=== PATIENT | female | born 1960 | race Caucasian/White ===

== ENCOUNTER 2016-09-24 23:26 | Emergency (ER) | payer OTHER ==
[~2016-09-24] VITALS: Ht 162.6 cm; Wt 122.5 kg
[~2016-09-24 23:26] MED LIST: ADVAIR 250-501 EACH INH; ADVAIR DISKU 11 UNIT PO; AUGMENTIN 875875 MG PO; AZITHROMYCIN250 MG PO; CLARITIN10 MG PO; FIORICET 50-301 EACH PO; GOOD SENSE IBU200 MG PO; GUAIFENESIN ER600 MG PO; LIVALO4 MG PO; MONTELUKAST SOD10 M1 PO; OMEPRAZOLE20 M2 PO; PREDNISONE 10MG10 MG PO; PREDNISONE 20MG20 MG PO; PREDNISONE10 M2 PO; PREDNISONE10 MG PO; PREDNISONE5 M1 PO; PROAIR HFA0.09 MG/Ac INH; Robitussin PO; SPIRIVA18 MCG INH; SUCRALFATE1 GM/10 M1 PO; SYMBICORT 80/4.1 PUF INH
[2016-09-24 23:40] VITALS: BP 162/86
--- NOTE | 2016-09-24 23:46 | ED DYSPNEA/ASTHMA COMPLAINT ---
History of Present Illness General Chief Complaint: Wheezing/Asthma Stated Complaint: ASTHMA ACTING UP PER PT Source: patient Exam Limitations: no limitations Vital Signs & Intake/Output Vital Signs & Intake/Output Vital Signs Date Time Temp Pulse Resp B/P Pulse O2 O2 Flow FiO2 Ox Delivery Rate 09/25 0024 20 100 Room Air 09/24 2355 95 09/24 2340 98.7 92 20 162/86 95 Room Air ED Intake and Output 09/25 0000 09/24 1200 Intake Total 0 Output Total Balance 0 Intake, Oral 0 Patient 270 lb Weight Allergies Coded Allergies: adhesive tape (Mild, HIVES 10/23/15) methyldopa (Mild, tongue swelling 10/23/15) amitriptyline (UNKNOWN 11/27/15) simvastatin (Mild, joint pain 11/27/15) escitalopram (From [employer]) ("Creepy crawlies inside me" 11/27/15) Reconcile Medications Albuterol Sulfate (Proair Hfa) 0.09 MG/Actuation ELIZABETH 2 PUFF INH Q4-PRN PRN ASTHMA (Reported) Butalb/Acetaminophen/Caffeine (Fioricet 50-300-40 MG Capsule) 1 EACH CAPSULE 1 -2 TAB PO Q6H PRN HEADACHE FLUTICASONE/SALMETEROL (Advair 250-50 Diskus) 250 MCG-50 MCG/DOSE BLST.W.DEV 1 PUFF INH BID ASTHMA (Reported) Guaifenesin (Guaifenesin ER) 600 MG TAB.ER.12H 600 MG PO Q12 chest congestion Loratadine (Claritin) 10 MG TAB 1 TAB PO DAILY ALLERGIES (Reported) Montelukast Sodium 10 MG TABLET 10 MG PO DAILY ASTHMA (Reported) Omeprazole 20 MG CAPSULE.DR 20 MG PO DAILY GERD (Reported) Pitavastatin Calcium (Livalo) 4 MG TABLET 1 TAB PO DAILY CHOLESTEROL ( Reported) Prednisone 50 MG TABLET 1 TAB PO DAILY asthma Prednisone 10 MG TABLET 1 TAB PO SI ASTHMA EXACERBATION START FROM TOMORROW 4 TABS DAILY X 2 DAYS 3 TABS DAILY X 3 DAYS 2 TABS DAILY X 3 DAYS 1 TAB DAILY X 3 DAYS UPTILL November Prednisone 5 MG TABLET 1 TAB PO SI ASTHMA EXACERBATION START TAKING ON November FOR 3 DAYS AND THEN STOP. [Robitussin] 10 ML PO Q4P PRN COUGH Tiotropium [place] (Spiriva) 18 MCG CAP.W.DEV 1 PUF INH DAILY LUNG HEALTH Triage Note: RECEIVED 56 YO FEMALE WITH HX OF ASTHMA, C/O WHEEZING, COUGHING AND SOB SINCE YESTERDAY, WORSE TODAY. PT'S PMD, DR MONTEMAYOR PUT HER ON ANTIBIOTICS AND MUCINEX. Triage Nurses Notes Reviewed? yes Onset: Gradual Duration: day(s): Timing: recent history Severity: mild, moderate Activities at Onset: none Prior Episodes/Possible Cause: occasional episodes Modifying Factors: Improves With: rest. Associated Symptoms: cough, wheezing HPI: 56-year-old woman history of asthma presents with cough and wheeze for the past 3 or 4 days. She states that she was placed on a Z-August 3 days ago. She states that the phlegm has improved, "my wheezing continues and tonight it got a little worse. I think I need steroids." She states that she is not short of breath. She has no chest pain or fever. She is otherwise well and has no other concerns. Past History Travel History Traveled to [place] past 21 day No Medical History Any Pertinent Medical History? 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 MOTHER (Breast cancer). SISTER (Breast cancer). Hx Contributory? No Review of Systems Review of Systems Constitutional: Reports: no symptoms. EENTM: Reports: no symptoms. Respiratory: Reports: no symptoms. Cardiovascular: Reports: no symptoms. GI: Reports: no symptoms. Genitourinary: Reports: no symptoms. Musculoskeletal: Reports: no symptoms. Skin: Reports: no symptoms. Neurological/Psychological: Reports: no symptoms. Hematologic/Endocrine: Reports: no symptoms. Immunologic/Allergic: Reports: no symptoms. All Other Systems: Reviewed and Negative Physical Exam Physical Exam General Appearance: well developed/nourished, mild distress Head: atraumatic, normal appearance Eyes: Bilateral: normal appearance. Ears, Nose, Throat: normal pharynx, normal ENT inspection Neck: normal inspection, supple, full range of motion Respiratory: wheezing Cardiovascular: regular rate/rhythm Gastrointestinal: normal bowel sounds, soft, non-tender, no organomegaly Extremities: normal inspection Neurologic/Psych: no motor/sensory deficits, awake, alert, oriented x 3 Skin: intact, normal color, warm/dry Core Measures ACS in differential dx? No Severe Sepsis Present: No Septic Shock Present: No Progress Differential Diagnosis: asthma, bronchitis Plan of Care: Patient is overall well-appearing and feels better after a DuoNeb. She is artery on antibiotics. Her breath sounds are symmetrical. I will defer a chest x-ray. We this discussed at great length and she will follow up with her primary care doctor and her rehabilitation engineer. Initial ED EKG: none Departure Departure Disposition: HOME OR SELF CARE Condition: Stable Clinical Impression Primary Impression: Asthma exacerbation Secondary Impressions: Bronchitis Referrals: ESPERANZA MONTEMAYOR MD (PCP/Family) Departure Forms: Customer Survey General Discharge Information Prescriptions: Current Visit Scripts Prednisone 1 TAB PO DAILY #4 TAB Critical Care Note Critical Care Note Critical Care Time: non-applicable
[2016-09-24] MEDS ORDERED: PREDNISONE50 M1 PO (23:50)
== END 2016-09-25 00:25 ==
LOC: ERH 23:26
DX: J45.901 Unspecified asthma with (acute) exacerbation (principal)
CPT/HCPCS: 1263

== ENCOUNTER 2016-10-31 15:16 | Emergency (ER) | payer OTHER ==
[~2016-10-31] VITALS: Ht 162.6 cm; Wt 122.5 kg
[~2016-10-31 15:16] MED LIST changes: +PREDNISONE50 M1 PO
--- NOTE | 2016-10-31 15:40 | ED DYSPNEA/ASTHMA COMPLAINT ---
History of Present Illness General Chief Complaint: Wheezing/Asthma Stated Complaint: ASTHMA Source: patient, old records Exam Limitations: no limitations Vital Signs & Intake/Output Vital Signs & Intake/Output Vital Signs Date Time Temp Pulse Resp B/P Pulse O2 O2 Flow FiO2 Ox Delivery Rate 10/31 1606 96 10/31 1528 99.8 82 18 153/82 97 Room Air Allergies Coded Allergies: adhesive tape (Mild, HIVES 10/23/15) methyldopa (Mild, tongue swelling 10/23/15) amitriptyline (UNKNOWN 11/27/15) simvastatin (Mild, joint pain 11/27/15) escitalopram (From [employer]) ("Creepy crawlies inside me" 11/27/15) Reconcile Medications Albuterol Sulfate (Proair Hfa) 90 MCG HFA.AER.AD 2 PUF INH Q4-6 PRN PRN ASTHMA (Reported) Albuterol Sulfate 2.5 MG/3 ML (0.083 %) VIAL.NEB 1 Vial INH/ZEENAT Q4H PRN WHEEZING/SOB (Reported) Atorvastatin Calcium 10 MG TABLET 1 TAB PO DAILY CHOLESTEROL (Reported) Azithromycin 250 MG TABLET 1 DP PO AD lungs 2 the first day followed by 1 for days 2-5 Butalb/Acetaminophen/Caffeine (Mdaine-Ayfybjkb-Nmkh 50-300-40) 50 MG-300 MG-40 MG CAPSULE 1 TAB PO Q4H PRN MIGRAINES (Reported) Codeine Phosphate/Guaifenesi (Guaifenesin AC Cough Syrup) 10 MG-100 MG/5 ML LIQUID 10 ML PO Q6H PRN COUGH MAY CAUSE DROWSINESS Fluticasone/Salmeterol (Advair 250-50 Diskus) 250 MCG-50 MCG/DOSE BLST.W.DEV 1 PUF INH BID ASTHMA (Reported) Guaifenesin (Guaifenesin ER) 600 MG TAB.ER.12H 600 MG PO Q12 chest congestion Ibuprofen (Advil) 200 MG CAPSULE 3 CAP PO PRN PAIN/INFLAMMATION (Reported) Loratadine (Claritin) 10 MG TABLET 1 TAB PO DAILY ALLERGIES/ASTHMA (Reported) Lorazepam 0.5 MG TABLET 0.5 TAB PO PRN ANXIETY (Reported) Montelukast Sodium 10 MG TABLET 1 TAB PO DAILY ASTHMA (Reported) Omeprazole 20 MG CAPSULE.DR 1 CAP PO BID GI (Reported) Prednisone 20 MG TABLET 40 MG PO AD TAPERING DOWN - STEROID (Reported) Sertraline HCl 50 MG TABLET 1 TAB PO DAILY MENTAL HEALTH (Reported) Tiotropium [place] (Spiriva) 18 MCG CAP.W.DEV 1 PUF INH DAILY LUNG HEALTH Triage Note: RECEIVED 56 YO FEMALE WITH HX OF ASTHMA, C/O WORSENING WHEEZING AND DIFFICULTY BREATHING, RESTARTED TODAY. PT SEEN AT COPD CLINIC 2 DAYS AGO, GIVEN SOLUMEDROL AND PLACED ON 40 MG PREDNISONE PO QD. WHEEZING NOTED BILAT. O2 SATS 98% Triage Nurses Notes Reviewed? yes HPI: Patient is a 56-year-old female presents complaining of cough and wheezing for approximately 3-4 days. Patient was placed on prednisone 40 mg 3 days ago and administered 40 mg of IV Solu-Medrol 2 days ago at the COPD clinic. Cough is nonproductive. Patient has been taking Robitussin with no improvement of her cough. Patient also using her nebulizer every 4 hours. Patient reports chest tightness associated with her cough. Occasional lightheadedness. Patient denies fevers, chills, sputum production. Past History Travel History Traveled to [place] past 21 day No Medical History Any Pertinent Medical History? 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 MOTHER (Breast cancer). SISTER (Breast cancer). Hx Contributory? No Review of Systems Review of Systems Constitutional: Denies: chills, fever. EENTM: Reports: no symptoms. Respiratory: Reports: see HPI. Cardiovascular: Reports: chest pain (tightness with cough). GI: Denies: abdominal pain, nausea, vomiting. Musculoskeletal: Reports: no symptoms. Skin: Reports: no symptoms. Neurological/Psychological: Reports: no symptoms. Hematologic/Endocrine: Reports: no symptoms. Immunologic/Allergic: Reports: no symptoms. Physical Exam Physical Exam General Appearance: alert, awake, obese Head: atraumatic, normal appearance Eyes: Bilateral: normal appearance, PERRL, EOMI. Ears, Nose, Throat: normal pharynx, normal ENT inspection, hearing grossly normal Neck: audible wheezing, no stridor Respiratory: mild scattered expiratory wheezing Cardiovascular: regular rate/rhythm (no appreciable murmur) Extremities: normal inspection, normal capillary refill, normal range of motion Neurologic/Psych: no motor/sensory deficits, awake, alert, oriented x 3, normal gait, normal mood/affect Skin: intact, normal color, warm/dry Lymphatic: no anterior cervical ulysses Core Measures ACS in differential dx? No Severe Sepsis Present: No Septic Shock Present: No Progress Differential Diagnosis: asthma, bronchitis, pneumonia Plan of Care: Current Medications Sig/Joni Start time Last Medication Dose Stop Time Status Admin Albuterol Sulfate 3 ML ONCE ONE 10/31 1600 UNVr (Proventil) 10/31 1601 Guaifenesin/Codeine 10 ML ONCE ONE 10/31 1600 UNVr Phosphate 10/31 1601 (Robitussin AC) Ipratropium [place] 2.5 ML ONCE ONE 10/31 1600 UNVr (Atrovent) 10/31 1601 Methylprednisolone 40 MG ONCE ONE 10/31 1600 UNVr (Solumedrol) 10/31 1601 1630: Discussed with Dr. Doty: start patient on antibiotics, have patient follow up with COPD clinic on Thursday. 1645: Patient reports starting to feel improvement. Lung exam improved after nebulizer treatment. Appears stable for discharge and follow up on Thursday with the COPD clinic. Patient instructed to return to the ER immediately if worsening. Patient takes Ativan PRN. discussed with patient the codeine medication and need for caution if taking codeine and ativan given their interactions. (BYRON JORDAN) Initial ED EKG: none Departure Departure Time of Disposition: 1654 Disposition: HOME OR SELF CARE Condition: Stable Clinical Impression Primary Impression: Asthma exacerbation Referrals: Andrew DOTY MD, MD, CARLOS (PCP/Family) Additional Instructions: Use your nebulizer every 4 hours as directed. Continue the prednisone taper as previously directed. Follow-up with the COPD clinic on Thursday. Return to the emergency department immediately if any worsening of your breathing/symptoms. Departure Forms: Customer Survey General Discharge Information Prescriptions: Current Visit Scripts Azithromycin 1 DP PO AD #6 TAB 2 the first day followed by 1 for days 2-5 Codeine Phosphate/Guaifenesi (Guaifenesin AC Cough Syrup) 10 ML PO Q6H PRN COUGH #150 ML MAY CAUSE DROWSINESS Critical Care Note Critical Care Note Critical Care Time: non-applicable
[2016-10-31] MEDS ORDERED: PROAIR HFA8.5 GM INH (16:11)
[2016-10-31] MEDS ORDERED: SERTRALINE HCL50 MG PO (16:12)
[2016-10-31] MEDS ORDERED: CLARITIN10 M1 PO (16:13)
[2016-10-31] MEDS ORDERED: ATORVASTATIN CA10 M1 PO (16:13)
[2016-10-31] MEDS ORDERED: LORAZEPAM0.5 M1 PO (16:15)
[2016-10-31] MEDS ORDERED: PREDNISONE20 M1 PO (16:15)
[2016-10-31] MEDS ORDERED: ALBUTEROL2.5 MG/3 M INH/SOL (16:16)
[2016-10-31] MEDS ORDERED: BUTALB-ACETAMI1 EAC1 PO (16:17)
[2016-10-31] MEDS ORDERED: ADVIL200 M1 PO (16:18)
[2016-10-31] MEDS ORDERED: GUAIFENESIN AC473 M2 PO (16:57)
[2016-10-31] MEDS ORDERED: AZITHROMYCIN250 M1 PO (16:57)
[2016-10-31 17:06] VITALS: BP 144/76
== END 2016-10-31 17:06 ==
LOC: ERH 15:16
DX: J45.901 Unspecified asthma with (acute) exacerbation (principal); R07.89 Other chest pain; Z87.891 Personal history of nicotine dependence
CPT/HCPCS: 1263; 1395; 96374

== ENCOUNTER 2017-01-01 08:32 | Emergency (ER) | payer OTHER ==
[~2017-01-01] VITALS: Ht 162.6 cm; Wt 120.2 kg
[~2017-01-01 08:32] MED LIST changes: +ADVIL200 M1 PO; +ALBUTEROL2.5 MG/3 M INH/SOL; +ATORVASTATIN CA10 M1 PO; +AZITHROMYCIN250 M1 PO; +BUTALB-ACETAMI1 EAC1 PO; +CLARITIN10 M1 PO; +GUAIFENESIN AC473 M2 PO; +LORAZEPAM0.5 M1 PO; +PREDNISONE20 M1 PO; +PROAIR HFA8.5 GM INH; +SERTRALINE HCL50 MG PO
--- NOTE | 2017-01-01 09:24 | ED HEADACHE COMPLAINT ---
History of Present Illness General Chief Complaint: Headache Stated Complaint: HEADACHE RED LFT EYE Source: patient, old records Exam Limitations: no limitations Vital Signs & Intake/Output Vital Signs & Intake/Output Vital Signs Date Time Temp Pulse Resp B/P B/P Pulse O2 O2 Flow FiO2 Mean Ox Delivery Rate 01/01 1023 80 20 118/67 97 Room Air 01/01 0836 96.5 78 18 120/70 95 Room Air Allergies Coded Allergies: adhesive tape (Mild, HIVES 10/23/15) methyldopa (Mild, tongue swelling 10/23/15) amitriptyline (UNKNOWN 11/27/15) simvastatin (Mild, joint pain 11/27/15) escitalopram (From [employer]) ("Creepy crawlies inside me" 11/27/15) Reconcile Medications Albuterol Sulfate (Proair Hfa) 90 MCG HFA.AER.AD 2 PUF INH Q4-6 PRN PRN ASTHMA (Reported) Albuterol Sulfate 2.5 MG/3 ML (0.083 %) VIAL.NEB 1 Vial INH/ZEENAT Q4H PRN WHEEZING/SOB (Reported) Atorvastatin Calcium 10 MG TABLET 1 TAB PO DAILY CHOLESTEROL (Reported) Butalb/Acetaminophen/Caffeine (Ynruwa-Gfymrmyw-Nbpo 50-300-40) 50 MG-300 MG-40 MG CAPSULE 1 TAB PO Q4H PRN MIGRAINES (Reported) Butalb/Acetaminophen/Caffeine (Fioricet 50-300-40 MG Capsule) 50 MG-300 MG-40 MG CAPSULE 1 TAB PO Q6P PRN MIGRAINE Fluticasone/Salmeterol (Advair 250-50 Diskus) 250 MCG-50 MCG/DOSE BLST.W.DEV 1 PUF INH BID ASTHMA (Reported) Loratadine (Claritin) 10 MG TABLET 1 TAB PO DAILY ALLERGIES/ASTHMA (Reported) Lorazepam 0.5 MG TABLET 0.5 TAB PO PRN ANXIETY (Reported) Montelukast Sodium 10 MG TABLET 1 TAB PO DAILY ASTHMA (Reported) Omeprazole 20 MG CAPSULE.DR 1 CAP PO BID GI (Reported) Sertraline HCl 50 MG TABLET 1 TAB PO DAILY MENTAL HEALTH (Reported) Tiotropium [place] (Spiriva) 18 MCG CAP.W.DEV 1 PUF INH DAILY LUNG HEALTH Triage Note: C/O HEADACHE SINCE LAST PM, WOKE UP THIS AM WITH WORSENING PAIN, NAUSEA, AND LEFT EYE SCLERA RED. Triage Nurses Notes Reviewed? yes HPI: Patient had a migraine last night. Headache above her left eye. Positive photophobia. Positive nausea but no vomiting. Patient took a few seconds and went away. Patient was at work this morning and noticed that her left eye was red. There is no pain or blurry vision. There is no nausea or vomiting. She then began to have the migraine come back. Patient is complaining of a throbbing pain above her left eye. There is no radiation. Positive photophobia. Positive nausea but no vomiting. The pain is currently 7 out of 10. There are no fevers or chills. There is no neck pain or neck stiffness. Past History Travel History Traveled to [place] past 21 day No Medical History Any Pertinent Medical History? 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 MOTHER (Breast cancer). SISTER (Breast cancer). Hx Contributory? No Review of Systems Review of Systems Constitutional: Reports: no symptoms. Eyes: Reports: see HPI. Ears, Nose, Throat, Mouth: Reports: no symptoms. Respiratory: Reports: no symptoms. Cardiovascular: Reports: no symptoms. Gastrointestinal/Abdominal: Reports: no symptoms. Genitourinary: Reports: no symptoms. Musculoskeletal: Reports: no symptoms. Skin: Reports: no symptoms. Neurological/Psychological: Reports: see HPI, headache. Hematologic/Endocrine: Reports: no symptoms. Endocrine: Reports: no symptoms. Immunologic/Allergic: Reports: no symptoms. All Other Systems: Reviewed and Negative Physical Exam Physical Exam General Appearance: well developed/nourished, alert, awake, anxious, mild distress Head: atraumatic, normal appearance Eyes: Left: other (SUBCONJUNCTIVAL HEMRRHORGE). Bilateral: PERRL, EOMI. Ears, Nose, Throat: normal pharynx, normal ENT inspection, hearing grossly normal Neck: normal inspection, supple, full range of motion Respiratory: normal breath sounds, chest non-tender, no respiratory distress, lungs clear Cardiovascular: regular rate/rhythm, normal peripheral pulses Gastrointestinal: normal bowel sounds, soft, non-tender, no organomegaly Back: normal inspection, normal range of motion Extremities: normal inspection, normal capillary refill, normal range of motion, no edema Psychiatric: awake, alert, oriented x 3 Cranial Nerves: normal hearing, normal speech, PERRL Coordination/Gait: normal finger to nose Motor/Sensory: no motor/sensory deficits Skin: intact, normal color, warm/dry Core Measures Severe Sepsis Present: No Septic Shock Present: No Progress Differential Diagnosis: migraine ALFARO, sinusitis, tension ALFARO Plan of Care: Current Medications Sig/Joni Start time Last Medication Dose Stop Time Status Admin Acetaminophen/ 1 TAB ONCE ONE 01/01 1015 UNVr Butalbital/Caffeine 01/01 1016 (Fioricet) Sodium Chloride 1,000 ML BOLUS ONE 01/01 0930 AC 01/01 (Normal Saline 0.9%) 01/01 1029 0950 Departure Departure Disposition: HOME OR SELF CARE Condition: Stable Clinical Impression Primary Impression: Migraine Qualifiers: Migraine type: with aura Status migrainosus presence: without status migrainosus Intractability: not intractable Qualified Code: G43.109 - Migraine with aura, not intractable, without status migrainosus Secondary Impressions: Subconjunctival hemorrhage Qualifiers: Laterality: left Qualified Code: H11.32 - Conjunctival hemorrhage, left eye Referrals: ESPERANZA MONTEMAYOR MD (PCP/Family) Additional Instructions: return if symptoms worsen or for any concerns Departure Forms: Customer Survey General Discharge Information Prescriptions: Current Visit Scripts Butalb/Acetaminophen/Caffeine (Fioricet 50-300-40 MG Capsule) 1 TAB PO Q6P PRN MIGRAINE #30 TAB
[2017-01-01] MEDS ORDERED: FIORICET 50-301 EACH PO (10:14)
[2017-01-01 10:23] VITALS: BP 118/67
== END 2017-01-01 10:54 ==
LOC: ERH 08:32
DX: G43.909 Migraine, unspecified, not intractable, without status migrainosus (principal); H11.32 Conjunctival hemorrhage, left eye
CPT/HCPCS: 96361; 96374; 96375; J1885; J2405

== ENCOUNTER 2017-11-16 02:16 | Emergency (ER) | payer OTHER ==
--- NOTE | 2017-11-16 02:34 | ED DYSPNEA/ASTHMA COMPLAINT ---
History of Present Illness General Chief Complaint: Wheezing/Asthma Stated Complaint: "ASTHMA ATTACK SPO2 97 HR 100 " Source: patient, family Exam Limitations: no limitations Vital Signs & Intake/Output Vital Signs & Intake/Output Vital Signs Date Time Temp Pulse Resp B/P B/P Pulse O2 O2 Flow FiO2 Mean Ox Delivery Rate 11/16 0413 96 11/16 0332 84 20 146/90 98 Room Air 11/16 0258 96 11/16 0224 97.8 97 20 177/78 97 Room Air Allergies Coded Allergies: adhesive tape (Mild, HIVES 10/23/15) methyldopa (Mild, tongue swelling 10/23/15) amitriptyline (UNKNOWN 11/27/15) simvastatin (Mild, joint pain 11/27/15) escitalopram (From [employer]) ("Creepy crawlies inside me" 11/27/15) Reconcile Medications Albuterol Sulfate (Proair Hfa) 90 MCG HFA.AER.AD 2 PUF INH Q4-6 PRN PRN ASTHMA (Reported) Albuterol Sulfate 2.5 MG/3 ML (0.083 %) VIAL.NEB 1 Vial INH/ZEENAT Q4H PRN WHEEZING/SOB (Reported) Albuterol Sulfate 2.5 MG/3 ML (0.083 %) VIAL.NEB 1 Vial INH/ZEENAT Q4P PRN WHEEZE Amoxicillin/Potassium Clav (Augmentin 875-125 Tablet) 875 MG-125 MG TABLET 1 TAB PO BID bronchitis Atorvastatin Calcium 10 MG TABLET 1 TAB PO DAILY CHOLESTEROL (Reported) Butalb/Acetaminophen/Caffeine (Nblgwp-Tnwrjncs-Puhj 50-300-40) 50 MG-300 MG-40 MG CAPSULE 1 TAB PO Q4H PRN MIGRAINES (Reported) Butalb/Acetaminophen/Caffeine (Fioricet 50-300-40 MG Capsule) 50 MG-300 MG-40 MG CAPSULE 1 TAB PO Q6P PRN MIGRAINE Fluticasone/Salmeterol (Advair 250-50 Diskus) 250 MCG-50 MCG/DOSE BLST.W.DEV 1 PUF INH BID ASTHMA (Reported) Loratadine (Claritin) 10 MG TABLET 1 TAB PO DAILY ALLERGIES/ASTHMA (Reported) Lorazepam 0.5 MG TABLET 0.5 TAB PO PRN ANXIETY (Reported) Methylprednisolone. (Medrol) 4 MG TAB.DS.PK 1 DP PO AD inflammation/wheezing 6 on day 1 then reduce by one tablet daily until gone Montelukast Sodium 10 MG TABLET 1 TAB PO DAILY ASTHMA (Reported) Omeprazole 20 MG CAPSULE.DR 1 CAP PO BID GI (Reported) Sertraline HCl 50 MG TABLET 1 TAB PO DAILY MENTAL HEALTH (Reported) Tiotropium [place] (Spiriva) 18 MCG CAP.W.DEV 1 PUF INH DAILY LUNG HEALTH Triage Note: PT TO ED WITH WORSENING COUGH/SOB X 6 DAYS. STARTED TAKING 40 MG PO PREDNISONE 3 DAYS AGO. TOOK HOME NEB TX W/O RELIEF. ALSO TAKING ROBITUSSIN WITH CODEINE W/O RELIEF. EXP WHEEZES ON ARRIVAL. ABLE TO SPEAK IN FULL SENTENCES. Triage Nurses Notes Reviewed? yes Onset: Gradual Duration: day(s): Timing: recent history Severity: moderate Activities at Onset: none Modifying Factors: Improves With: rest, other (better w/neb). Associated Symptoms: cough, wheezing HPI: 57 yo woman h/o asthma presents with cough, wheezing, "phlegm in my throat" for the past 6 days. "I took some nebs tonight and I was still wheezing... I took prednisone 40mg for the past 2 days... When it gets like this, I usually need solumedrol." She has no chest pain, fever, chills, nausea, vomiting, diarrhea. She is otherwise well. Past History Travel History Traveled to [place] past 21 day No Medical History Any Pertinent Medical History? 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 MOTHER (Breast cancer). SISTER (Breast cancer). Hx Contributory? No Review of Systems Review of Systems Constitutional: Reports: no symptoms. EENTM: Reports: no symptoms. Respiratory: Reports: no symptoms. Cardiovascular: Reports: no symptoms. GI: Reports: no symptoms. Genitourinary: Reports: no symptoms. Musculoskeletal: Reports: no symptoms. Skin: Reports: no symptoms. Neurological/Psychological: Reports: no symptoms. Hematologic/Endocrine: Reports: no symptoms. Immunologic/Allergic: Reports: no symptoms. All Other Systems: Reviewed and Negative Physical Exam Physical Exam General Appearance: well developed/nourished, mild distress Head: atraumatic, normal appearance Eyes: Bilateral: normal appearance. Ears, Nose, Throat: normal pharynx, normal ENT inspection Neck: normal inspection, supple, full range of motion Respiratory: wheezing, prolonged expiratory phase Cardiovascular: regular rate/rhythm Gastrointestinal: normal bowel sounds, soft, non-tender, no organomegaly Extremities: normal inspection Neurologic/Psych: no motor/sensory deficits, awake, alert, oriented x 3 Skin: intact, normal color, warm/dry Core Measures ACS in differential dx? No CVA/TIA Diagnosis No Sepsis Present: No Sepsis Focused Exam Completed? No Progress Differential Diagnosis: asthma, bronchitis, CHF, COPD, pneumonia Plan of Care: Orders Procedure Date/time Status TROPONIN LEVEL 11/16 0238 Complete COMPREHENSIVE METABOLIC PANEL 11/16 023 Complete CBC WITHOUT DIFFERENTIAL 11/16 237 Complete EKG 11/16 0238 Active Current Medications Sig/Joni Start time Last Medication Dose Stop Time Status Admin Magnesium Sulfate 1 GM ONCE ONE 11/16 0400 AC 11/16 (Mag Sulfate in D5) 11/16 0759 0409 Dextrose/Water 100 ML (D5W) Laboratory Tests 11/16/17 0250: Anion Gap 11, Estimated GFR > 60, BUN/Creatinine Ratio 38.0 H, Glucose 98, Calcium 9.3, Total Bilirubin 0.4, AST 16, ALT 31, Alkaline Phosphatase 106, Troponin I < 0.01, Total Protein 6.4, Albumin 4.1, Globulin 2.3, Albumin/ Globulin Ratio 1.8, CBC w Diff MAN DIFF ORDERED, RBC 4.58, MCV 82.6, MCH 27.5, MCHC 33.3, RDW 14.2, MPV 7.9, Gran % 63.6, Lymphocytes % 27.5, Monocytes % 7.5, Eosinophils % 1.1, Basophils % 0.3, Absolute Granulocytes 8.9 H, Segmented Neutrophils 64, Absolute Lymphocytes 3.9 H, Lymphocytes 26, Monocytes 9, Absolute Monocytes 1.0 H, Absolute Eosinophils 0.2, Basophils 1, Absolute Basophils 0, Platelet Estimate ADEQUATE, Polychromasia 1+, Poikilocytosis 1+, Ovalocytes 1+, Stomatocytes FEW, Fld Total RBCs Counted 100 Diagnostic Imaging: Viewed by Me: Radiology Read. Discussed w/RAD: Radiology Read. CXR Impression: PATIENT: WALDO CHIRINOS PRESENT AGE: 57 PATIENT ACCOUNT NO: [id number] : 62 LOCATION: [facility] ORDERING PHYSICIAN: Anjel Monteiro MD SERVICE DATE: 11/16/17 EXAM TYPE: RAD - XRY- PORTABLE CHEST XRAY EXAMINATION: XR PORTABLE CHEST CLINICAL INFORMATION: Dyspnea COMPARISON: 04/09/2017 TECHNIQUE: Portable frontal view of the chest was obtained. FINDINGS: Assessment is limited due to patient body habitus. Lung volumes appear symmetric. No focal consolidation is seen. No evidence of pneumothorax, significant pleural effusion, or overt pulmonary edema. The cardiomediastinal contour is unremarkable. No acute osseous findings are seen. IMPRESSION: No acute cardiopulmonary findings. DICTATED BY: Charli Ness MD DATE/TIME DICTATED:11/16/17326 PHARMACY CLINICAL SPECIALIST:LUZ MARIA DATE/TIME TRANSCRIBED:11/16/17326 CONFIDENTIAL, DO NOT COPY WITHOUT APPROPRIATE AUTHORIZATION. <Electronically signed in Other Vendor System> SIGNED BY: Charli Ness MD 11/16/17330 Initial ED EKG: sinus rhythm, no acute changes. Departure Departure Disposition: HOME OR SELF CARE Condition: Stable Clinical Impression Primary Impression: Asthma exacerbation Secondary Impressions: Bronchitis Referrals: Nathanael Rodriguez MD (PCP/Family) Departure Forms: Customer Survey General Discharge Information Prescriptions: Current Visit Scripts Methylprednisolone. (Medrol) 1 DP PO AD #1 DP 6 on day 1 then reduce by one tablet daily until gone Amoxicillin/Potassium Clav (Augmentin 875-125 Tablet) 1 TAB PO BID #20 TAB Albuterol Sulfate 1 Vial INH/ZEENAT Q4P PRN WHEEZE #50 Vial Ref 2 Comments 11/16/17, 6:02.... PT FEELING BETTER after steroids and multiple nebs.... pt safe for discharge, resting comfortably... 02 sat 97% on room air... advocated close follow up. Critical Care Note Critical Care Note Critical Care Time: non-applicable
[2017-11-16 02:57] LABS: ABSOLUTE BASOPHIL COUNT 0 /CUMM (0.0-0.2); ABSOLUTE EOSINOPHIL COUNT 0.2 /CUMM (0.0-0.7); ABSOLUTE GRANULOCYTE CT 8.9 /CUMM (1.4-6.5); ABSOLUTE LYMPH COUNT 3.9 /CUMM (1.2-3.4); BASOPHIL % 0.3 % (0.0-2.0); EOSINOPHIL % 1.1 % (0-5); GRANULOCYTE % 63.6 % (42.2-75.2); HEMATOCRIT 37.8 % (37-47); MEAN CORPUSCULAR HGB 27.5 PG (27.0-31.0); MEAN CORPUSCULAR HGB CONC 33.3 G/DL (33.0-37.0); MEAN CORPUSCULAR VOLUME 82.6 FL (81.0-99.0); MEAN PLATELET VOLUME 7.9 FL (7.4-10.4); PLATELET COUNT 300 /CUMM (130-400); RBC DISTRIBUTION WIDTH 14.2 % (11.5-14.5); RED BLOOD CELL CT 4.58 /CUMM (4.20-5.40)
--- NOTE | 2017-11-16 03:31 | RADIOLOGY REPORT ---
EXAMINATION: XR PORTABLE CHEST CLINICAL INFORMATION: Dyspnea COMPARISON: 04/09/2017 TECHNIQUE: Portable frontal view of the chest was obtained. FINDINGS: Assessment is limited due to patient body habitus. Lung volumes appear symmetric. No focal consolidation is seen. No evidence of pneumothorax, significant pleural effusion, or overt pulmonary edema. The cardiomediastinal contour is unremarkable. No acute osseous findings are seen. IMPRESSION: No acute cardiopulmonary findings.
[2017-11-16] MEDS ORDERED: MEDROL4 M2 PO (05:57)
[2017-11-16] MEDS ORDERED: AUGMENTIN 875-1 EACH PO (05:57)
[2017-11-16] MEDS ORDERED: ALBUTEROL2.5 MG/3 M INH/SOL (06:01)
[2017-11-16 06:18] VITALS: BP 146/67
== END 2017-11-16 06:20 ==
LOC: ERH 02:16
PROVIDERS: Pediatrics
DX: J45.901 Unspecified asthma with (acute) exacerbation (principal)
CPT/HCPCS: 1263; 1426; 71045; 93005; 93010; 94644; 96374; 96375; J2930; J3490

== ENCOUNTER 2017-11-18 12:46 | Inpatient (IN) | payer OTHER ==
[~2017-11-18] VITALS: Ht 162.6 cm; Wt 122.9 kg
[~2017-11-18 12:46] MED LIST changes: +AUGMENTIN 875-1 EACH PO; +MEDROL4 M2 PO
--- NOTE | 2017-11-18 14:09 | ED DYSPNEA/ASTHMA COMPLAINT ---
History of Present Illness General Chief Complaint: Wheezing/Asthma Stated Complaint: SIB CHECO, ASTHMA EXACERBATION Source: patient Exam Limitations: no limitations Vital Signs & Intake/Output Vital Signs & Intake/Output Vital Signs Date Time Temp Pulse Resp B/P B/P Pulse O2 O2 Flow FiO2 Mean Ox Delivery Rate 11/18 1838 97.9 92 18 190/81 95 Room Air 11/18 1619 98.3 98 18 166/96 99 Nasal 2.0L Cannula 11/18 1406 96 Nasal 2.0L Cannula 11/18 1405 97.8 86 20 137/77 96 Nasal 2.0L Cannula 11/18 1311 97 Room Air 11/18 1251 97.6 84 18 155/84 97 Room Air Allergies Coded Allergies: adhesive tape (Mild, HIVES 10/23/15) methyldopa (Mild, tongue swelling 10/23/15) amitriptyline (UNKNOWN 11/27/15) simvastatin (Mild, joint pain 11/27/15) escitalopram (From [employer]) ("Creepy crawlies inside me" 11/27/15) Reconcile Medications Albuterol Sulfate (Proair Hfa) 90 MCG HFA.AER.AD 2 PUF INH Q4-6 PRN PRN ASTHMA (Reported) Albuterol Sulfate 2.5 MG/3 ML (0.083 %) VIAL.NEB 1 Vial INH/ZEENAT Q4P PRN WHEEZE Amoxicillin/Potassium Clav (Augmentin 875-125 Tablet) 875 MG-125 MG TABLET 1 TAB PO BID bronchitis Atorvastatin Calcium 10 MG TABLET 1 TAB PO DAILY CHOLESTEROL (Reported) Butalb/Acetaminophen/Caffeine (Srh[employer]-Olgpbnas-Cuxg 50-300-40) 50 MG-300 MG-40 MG CAPSULE 1 TAB PO Q4H PRN MIGRAINES (Reported) Fluticasone/Salmeterol (Advair 250-50 Diskus) 250 MCG-50 MCG/DOSE BLST.W.DEV 1 PUF INH BID ASTHMA (Reported) Loratadine (Claritin) 10 MG TABLET 1 TAB PO DAILY ALLERGIES/ASTHMA (Reported) Lorazepam 0.5 MG TABLET 0.5 TAB PO PRN ANXIETY (Reported) Meloxicam 15 MG TABLET 1 TAB PO DAILY PAIN (Reported) Methylprednisolone. (Medrol) 4 MG TAB.DS.PK 1 DP PO AD inflammation/wheezing 6 on day 1 then reduce by one tablet daily until gone Montelukast Sodium 10 MG TABLET 1 TAB PO DAILY ASTHMA (Reported) Omeprazole 20 MG CAPSULE. 1 CAP PO BID GI (Reported) Sertraline HCl 50 MG TABLET 1 TAB PO DAILY MENTAL HEALTH (Reported) Tiotropium [place] (Spiriva) 18 MCG CAP.W.DEV 1 PUF INH DAILY LUNG HEALTH Triage Note: PT TO ER PER ADVICE OF DR. KESSLER. SEEN ON THURSDAY FOR ASTHMA EXACERBATION, STARTED ON MEDROL DOSE PACK AND AUGMENTIN, STATES CONTINUES TO HAVE SOB AND WHEEZING. Triage Nurses Notes Reviewed? yes Onset: Gradual Duration: day(s):, constant, continues in ED, getting worse, waxing and waning Severity: severe HPI: Patient presents for evaluation of a persistent asthma exacerbation over the past week. Patient has been using her nebulizer and has been on steroids with only mild improvement. Symptoms worsen with exertion the patient's oxygen saturations recorded at home have dropped to about 90% at times. Past History Travel History Traveled to [place] past 21 day No Medical History Any Pertinent Medical History? 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 MOTHER (Breast cancer). SISTER (Breast cancer). Hx Contributory? No Review of Systems Review of Systems Constitutional: Reports: no symptoms. EENTM: Reports: no symptoms. Respiratory: Reports: see HPI. Cardiovascular: Reports: no symptoms. GI: Reports: no symptoms. Genitourinary: Reports: no symptoms. Musculoskeletal: Reports: no symptoms. Skin: Reports: no symptoms. Neurological/Psychological: Reports: no symptoms. Hematologic/Endocrine: Reports: no symptoms. Immunologic/Allergic: Reports: no symptoms. All Other Systems: Reviewed and Negative Physical Exam Physical Exam Respiratory: SEE BELOW Comments: Gen.: Well-nourished, well-developed, no acute respiratory distress. Head: Normocephalic, atraumatic. Eyes: Normal inspection bilaterally Ears: Normal inspection bilaterally Nose: Normal inspection Throat/mouth : Moist mucosa Neck: Supple, full range of motion, no goiter Heart: Regular rate and rhythm, no murmurs rubs or gallops Lungs: Decreased air entry bilaterally with no overt wheezing Chest: Nontender Back: Normal range of motion Abdomen: Soft, nontender, nondistended, normal bowel sounds Extremities: Normal range of motion grossly, equal radial pulses, no cyanosis clubbing or edema Neurologic: Cranial nerves grossly intact, speech is clear Skin: warm and dry Psychiatric: Calm, cooperative, no apparent delusions or hallucinations Core Measures ACS in differential dx? No CVA/TIA Diagnosis No Sepsis Present: No Sepsis Focused Exam Completed? No Progress Differential Diagnosis: asthma, bronchitis, CHF, COPD, pneumonia, pneumothorax Plan of Care: Orders Procedure Date/time Status Regular Diet 11/19 B Active Misc Message 11/19 1947 Active ED Holding Orders 11/19 1947 Active Admit to inpatient 11/19 1947 Active Code Status 11/19 1947 Active Initial ED EKG: none Comments: 11/18/2017 6:44:04 PM although patient has improved after each nebulizer treatment she still felt she was not at baseline and able to return home. With ambulation here in the emergency Department the patient's oxygen saturation dropped to 92% but she became visibly dyspneic and experienced auditory wheezing. I have ordered another albuterol treatment for her and feel she needs to be admitted. As a result of her ambulation she is also now experiencing a headache, acetaminophen IV ordered. Departure Departure Disposition: STILL A PATIENT Condition: Stable Clinical Impression Primary Impression: Status asthmaticus Qualifiers: Asthma severity: moderate Asthma persistence: persistent Qualified Code: J45.42 - Moderate persistent asthma with status asthmaticus Referrals: Nathanael Rodriguez MD (PCP/Family) Departure Forms: Customer Survey General Discharge Information Admission Note Spoke With: Nathanael Rodriguez MD Documentation of Exam: Documentation of any treatments & extenuating circumstances including Concerns Regarding Discharge (functional status, medication knowledge or non-compliance, living conditions, etc.) that warrant an admission rather than observation: Patient presents in status asthmaticus that has been only minimally responsive to repeated inhaled bronchodilators and IV steroids. The patient became severely dyspneic with ambulation in the emergency department with audible wheezing. I feel she cannot be treated safely as an outpatient. I predict she would have great difficulty in compliance with outpatient treatment and would likely return in worse clinical condition given her exertional dyspnea. She is at risk of acute respiratory failure and mortality. I feel she now requires hospitalization for repeated nebulized bronchodilators and continued IV steroids. Patient's vital signs and pulse oximetry should be monitored and oxygen supplemented accordingly. Pulmonary consultation should be considered for optimization of medical management. The patient has traditionally required multiple day hospitalizations for her severe asthma flares. I feel she will require a multiple day hospitalization. Critical Care Note Critical Care Note Critical Care Time: 30-74 min
[2017-11-18] MEDS ORDERED: MELOXICAM15 M1 PO (14:25)
--- NOTE | 2017-11-18 20:39 | PN- Att Addend ---
Attending Addendum Attending Brief Note 57-year-old white female with history of asthma. For the last few days not feeling well some cough difficult to bring up sputum and wheezing with any little exertion. Came into the ER a few days ago was given antibiotics and treatments not getting better today breathing was really hard wheezes in any little exertion made her short of breath and coughing, returns to the ER much response with emergency treatment will be admitted for IV steroids respiratory treatments and have meal room hand follow her in the morning Recent chest x-ray showed no acute infiltrates, white count was 14,000 November 16. Patient is afebrile. Current Medications Sig/Joni Start time Last Medication Dose Route Stop Time Status Admin Acetaminophen 0 .STK-MED ONE 11/18 185 DC IV Acetaminophen 1,000 MG ONCE ONE 11/18 1845 DC 11/18 N/A 1 UNIT IV 11/18 185 1851 Albuterol Sulfate 3 ML ONCE ONE 11/18 1845 DC 11/18 INH 11/18 1846 2011 Albuterol Sulfate 3 ML ONCE ONE 11/18 1515 DC 11/18 INH 11/18 1516 1514 Albuterol Sulfate 3 ML ONCE ONE 11/18 1330 DC 05/ INH 11/18 1331 1318 Albuterol Sulfate 3 ML ONCE ONE 11/18 1330 DC 05/ INH 11/18 1331 1327 Ipratropium [place] 2.5 ML ONCE ONE 11/18 1330 DC 05/ INH / 1331 1318 Ipratropium [place] 2.5 ML ONCE ONE 11/18 1330 DC 05/ INH / 1331 1327 Methylprednisolone 0 .STK-MED ONE 11/18 1340 DC .ROUTE Methylprednisolone 125 MG ONCE ONE 11/18 1330 DC 05/ IV / 1331 1337 Vital Signs Date Time Temp Pulse Resp B/P B/P Pulse O2 O2 Flow FiO2 Mean Ox Delivery Rate 11/18 2033 96 Nasal 2.0L Cannula 11/18 1838 97.9 92 18 190/81 95 Room Air 11/18 1619 98.3 98 18 166/96 99 Nasal 2.0L Cannula 11/18 1406 96 Nasal 2.0L Cannula 11/18 1405 97.8 86 20 137/77 96 Nasal 2.0L Cannula 11/18 1311 97 Room Air 11/18 1251 97.6 84 18 155/84 97 Room Air Intake & Output 11/18 1600 Intake Total 0 Output Total Balance 0 Intake, Oral 0 Patient 270 lb Weight Weight Reported by Patient Measurement Method
--- NOTE | 2017-11-18 20:40 | Admission Certification ---
Admission Certification Certification Statement - As attending physician, I certify that at the time of - admission, based on clinical presentation, severity of - symptoms, need for further diagnostic testing and - therapeutic interventions, and risk of adverse outcomes - without in-hospital treatment, in my clinical assessment, - this patient requires an acute hospital stay for a minimum - of two nights or longer. I have also considered psychsocial - factors such as support system, advanced age, financial - issues, cognitive issues, and failed out-patient treatments, - past re-admission history, safety of patient, and lack of - compliance as applicable. Specific rationale supporting this admission is: Acute exacerbation of her asthma
--- NOTE | 2017-11-18 21:48 | RADIOLOGY REPORT ---
EXAMINATION: XR CHEST CLINICAL INFORMATION: Wheezing. COMPARISON: 11/16/2017 TECHNIQUE: 2 views of the chest were obtained. FINDINGS: The lungs are well expanded. There is no focal consolidation, edema, or effusion. No pneumothorax. The cardiomediastinal silhouette is within normal limits. No acute osseous abnormality. Degenerative changes noted in the spine. IMPRESSION: No acute pulmonary findings.
[2017-11-18 22:35] LABS: ABSOLUTE BASOPHIL COUNT 0 /CUMM (0.0-0.2); ABSOLUTE EOSINOPHIL COUNT 0 /CUMM (0.0-0.7); ABSOLUTE GRANULOCYTE CT 11.5 /CUMM (1.4-6.5); ABSOLUTE LYMPH COUNT 1.3 /CUMM (1.2-3.4); ABSOLUTE MONOCYTE COUNT 0.2 /CUMM (0.10-0.60); BASOPHIL % 0.2 % (0.0-2.0); EOSINOPHIL % 0 % (0-5); HEMATOCRIT 41.2 % (37-47); MEAN CORPUSCULAR HGB 27.4 PG (27.0-31.0); MEAN CORPUSCULAR HGB CONC 32.8 G/DL (33.0-37.0); MEAN CORPUSCULAR VOLUME 83.6 FL (81.0-99.0); MEAN PLATELET VOLUME 8.2 FL (7.4-10.4); PLATELET COUNT 291 /CUMM (130-400); RBC DISTRIBUTION WIDTH 14.3 % (11.5-14.5); RED BLOOD CELL CT 4.93 /CUMM (4.20-5.40); WHITE BLOOD CELL COUNT 13.1 /CUMM (4.8-10.8)
--- NOTE | 2017-11-19 00:13 | History & Physical ---
Dorita Alberto MD 11/19/17 0012: General Information and HPI MD Statement: I have seen and personally examined WALDO CHIRINOS and documented this H&P. The patient is a 57 year old F who presented with a patient stated chief complaint of wheezing, shortness of breath]. Source of Information: patient, old records Exam Limitations: no limitations History of Present Illness: Patient is a 57-year-old female with past medical history of long-standing asthma, history of bronchitis, history of multiple ED visits and admissions for asthma exacerbations, most recently seen in the ED on November 16, history of bronchitis, history of pneumonia, history of GERD, anxiety presenting this admission with chief complaint of wheezing and shortness of breath. Patient states that approximately one week prior to this admission she started feeling unwell. Reports she started having cough for which she took Robitussin and noticed some chest tightness. At that time patient thought she might be coming down with a cold has many of her coworkers were sick. Patient states that she started feeling worse over the course of the week and started taking prednisone for 3 days (patient reports that she had this at home herself and due to recurrent asthma exacerbations takes prednisone as needed when she starts to experience worsening of her asthma). Patient states despite this prednisone she continued to feel worse and later on Thursday night she woke up with difficulty breathing and chest pressure and came to the ED. At which point patient was treated and sent home with Augmentin and Medrol dose pack. Patient states that today she noticed increased shortness of breath with exertion, wheezing, sweating. Patient reports continued nonproductive cough. Patient states that she feels as though she has phlegm but is unable to bring it up. Symptoms are accompanied by chest tightness and pressure. Patient reports that she takes pro-air, Spiriva, montelukast, nebulizer treatments at home. Patient states that prior to coming in today she took 2 nebulizer treatments with the span of two hours. Patient denies any recent fever, chills, nausea/vomiting, abdominal pain, constipation/diarrhea, chest pain, palpitations, dysuria/hematuria. Patient has had multiple hospitalizations and ED visits for her asthma exacerbation. Patient reports that anything can trigger her asthma including perfume, eucalyptus. Patient was last hospitalized at [facility] in 2016. Patient denies any ICU stay or requiring intubation. 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 Doty. States that when she feels she is starting to have an asthma exacerbation she calls the clinic and will come to the COPD clinic for IV steroids. States this time she was unable to do so as it was over the weekend. Patient reports sick contacts at work. Patient denies smoking states that she quit 22 years prior and was previously smoking socially. Patient denies any alcohol or illicit drug use. Patient denies any exposure to secondhand smoke. Denies any recent changed her environment. Patient has a dog- reportedly hypoallergenic. In the ED patient was found to desat from 98-92% with ambulation, diaphoretic and started having audible wheezing. Patient received multiple DuoNeb treatments which patient reports temporarily help improves symptoms. Patient received IV Solu-Medrol 125 mg 1 and IV Tylenol for headaches 1. Allergies/Medications Allergies: Coded Allergies: adhesive tape (Mild, HIVES 10/23/15) methyldopa (Mild, tongue swelling 10/23/15) amitriptyline (UNKNOWN 11/27/15) simvastatin (Mild, joint pain 11/27/15) escitalopram (From [employer]) ("Creepy crawlies inside me" 11/27/15) Home Med list Albuterol Sulfate (Proair Hfa) 90 MCG HFA.AER.AD 2 PUF INH Q4-6 PRN PRN ASTHMA (Reported) Albuterol Sulfate 2.5 MG/3 ML (0.083 %) VIAL.NEB 1 Vial INH/ZEENAT Q4P PRN WHEEZE Amoxicillin/Potassium Clav (Augmentin 875-125 Tablet) 875 MG-125 MG TABLET 1 TAB PO BID bronchitis Atorvastatin Calcium 10 MG TABLET 1 TAB PO DAILY CHOLESTEROL (Reported) Butalb/Acetaminophen/Caffeine (Xorkdi-Irxpjrqm-Olfd 50-300-40) 50 MG-300 MG-40 MG CAPSULE 1 TAB PO Q4H PRN MIGRAINES (Reported) Fluticasone/Salmeterol (Advair 250-50 Diskus) 250 MCG-50 MCG/DOSE BLST.W.DEV 1 PUF INH BID ASTHMA (Reported) Loratadine (Claritin) 10 MG TABLET 1 TAB PO DAILY ALLERGIES/ASTHMA (Reported) Lorazepam 0.5 MG TABLET 0.5 TAB PO PRN ANXIETY (Reported) Meloxicam 15 MG TABLET 1 TAB PO DAILY PAIN (Reported) Methylprednisolone. (Medrol) 4 MG TAB.DS.PK 1 DP PO AD inflammation/wheezing 6 on day 1 then reduce by one tablet daily until gone Montelukast Sodium 10 MG TABLET 1 TAB PO AT BEDTIME Asthma (Reported) Omeprazole 20 MG CAPSULE.DR 1 CAP PO BID GI (Reported) Sertraline HCl 50 MG TABLET 1 TAB PO DAILY MENTAL HEALTH (Reported) Tiotropium [place] (Spiriva) 18 MCG CAP.W.DEV 1 PUF INH DAILY LUNG HEALTH Past History Travel History Traveled to [place] past 21 day No Medical History Neurological: NONE EENT: NONE Cardiovascular: hyperlipidemia Respiratory: asthma, bronchitis, pneumonia Gastrointestinal: GERD Hepatic: NONE Renal: NONE Musculoskeletal: NONE Psychiatric: anxiety Endocrine: NONE Blood Disorders: NONE Cancer(s): 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 MOTHER (Breast cancer). SISTER (Breast cancer). Psychosocial History Who Do You Live With? spouse Services at Home: None Primary Language: Citizen Of [place] Functional Ability ADLs Independent: dressing, eating, toileting, bathing. Ambulation: independent IADLs Independent: shopping, housework, finances, food prep, telephone, transportation , medication admin. Review of Systems Review of Systems Constitutional: Reports: see HPI. Exam & Diagnostic Data Last 24 Hrs of Vital Signs/I&O Vital Signs Date Time Temp Pulse Resp B/P B/P Pulse O2 O2 Flow FiO2 Mean Ox Delivery Rate 11/19 0003 98.4 80 20 145/69 98 Nasal 2.0L Cannula 11/18 2217 98.5 90 20 160/70 97 Room Air 11/18 2034 96 Nasal 2.0L Cannula 11/18 1838 97.9 92 18 190/81 95 Room Air 11/18 1619 98.3 98 18 166/96 99 Nasal 2.0L Cannula 11/18 1406 96 Nasal 2.0L Cannula 11/18 1405 97.8 86 20 137/77 96 Nasal 2.0L Cannula 11/18 1311 97 Room Air 11/18 1251 97.6 84 18 155/84 97 Room Air Intake & Output 11/19 0800 11/19 0000 11/18 1600 Intake Total 0 Output Total Balance 0 Intake, Oral 0 Patient 270 lb Weight Weight Reported by Patient Measurement Method Physical Exam General Appearance Alert, Oriented X3, Cooperative, No Acute Distress Skin No Rashes, No Breakdown Skin Temp/Moisture Exam: Warm/Dry Sepsis Skin Exam (color): Normal for Ethnicity HEENT Atraumatic, PERRLA, EOMI, Mucous Membr. moist/pink Cardiovascular Regular Rate, Normal S1, Normal S2 Lungs Clear to Auscultation, Normal Air Movement Abdomen Normal Bowel Sounds, Soft, No Tenderness Neurological Normal Speech, Strength at 5/5 X4 Ext, Normal Tone, Sensation Intact, Cranial Nerves 3-12 NL Extremities No Clubbing, No Cyanosis, No Edema, Normal Pulses, No Tenderness/ Swelling Vascular Normal Pulses, Pulses Symmetrical Last 24 Hrs of Labs/Ankit: Laboratory Tests 11/18/172218: Anion Gap 13, Estimated GFR > 60, BUN/Creatinine Ratio 40.0 H, Glucose 220 H, Calcium 9.6, Phosphorus 5.2 H, Magnesium 2.3, Total Bilirubin 0.7, AST 19, ALT 30, Alkaline Phosphatase 98, Total Protein 6.9, Albumin 4.3, Globulin 2.6, Albumin/Globulin Ratio 1.7, CBC w Diff NO MAN DIFF REQ, RBC 4.93, MCV 83.6, MCH 27.4, MCHC 32.8 L, RDW 14.3, MPV 8.2, Gran % 88.0 H, Lymphocytes % 9.9 L, Monocytes % 1.9, Eosinophils % 0, Basophils % 0.2, Absolute Granulocytes 11.5 H , Absolute Lymphocytes 1.3, Absolute Monocytes 0.2, Absolute Eosinophils 0, Absolute Basophils 0 Microbiology 11/18 2310 LOWER RESP: Respiratory Culture - ORD 11/18 2310 LOWER RESP: Gram Stain - ORD Assessment/Plan Assessment: Patient is a 57-year-old female with past medical history of long-standing asthma, history of bronchitis, history of multiple ED visits and admissions for asthma exacerbations, most recently seen in the ED on November 16, history of bronchitis, history of pneumonia, history of GERD, anxiety presenting this admission with chief complaint of wheezing and shortness of breath. Patient will be admitted to general medicine for management of the followin. Acute asthma exacerbation 2. Acute hypoxemic respiratory failure 2/2 above 3. Leukocytosis likely 2/2 to recent steroid 4. History of GERD, anxiety Plan: Admit to general medicine floor Continue IV Solu-Medrol 40mg q8h TRC/DuoNeb treatments Continue spiriva, advair, proair Continue home medications Mucinex for congestion Pulmonary consult in AM with Dr. 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 Doty) engineer vital signs Repeat CBC in AM Monitor electrolytes Sputum culture (may need to be induced), flu swab CPAP at night (patient brought her machine from home) Diet: Regular Code: Full code DVT PPx: Lovenox, ALPS Diet: Regular diet Code: Full code DVT PPx: Lovenox, ALPS As Ranked By This Provider Problem List: 1. 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 She presenting this admission with chief complaint of wheezing and shortness of breath. Patient states that approximately one week prior to this admission she started feeling unwell. Reports she started having cough for which she took Robitussin and noticed some chest tightness. At that time patient thought she might be coming down with a cold has many of her coworkers were sick. Patient states that she started feeling worse over the course of the week and started taking prednisone for 3 days. Patient states despite this prednisone she continued to feel worse and later on Thursday night she woke up with difficulty breathing and chest pressure and came back to the ED. At which point patient was treated and sent home with Augmentin and Medrol dose pack but despite that she was still c/o wheezing and SOB so she came back again for evaluation.. In the emergency department patient received 125 mg of IV Solu-Medrol multiple rounds of Nebs treatment and according to her at significantly improved her breathing status and wheezing but she stated that if she go home she will bounce back again as that happened multiple times. the CXR that done today was within normal limits. Physical examination, not at imaging as above Problem list: -Acute hypoxic respiratory failure due to asthma exacerbation 2/2 acute bronchitis -Leukocytosis secondary to oral steroid Plan: -Admit patient to general medicine floor -Vitals every shift -Start IV Solu-Medrol 40 mg every 6 -start Azithro Abx IV tomorrow -TRC nebs as needed, Mucinex -Obtain sputum culture, rapid flu -CPAP at night -Continue her home inhalers -Pulmonary consultation a.m. -Obtain EKG for baseline -Accu-Chek, regular diet -Pain pathway -DVT prophylaxis subcutaneous Lovenox -Full code
[2017-11-19 01:21] VITALS: BP 154/86
[2017-11-19 06:00] VITALS: BP 140/90
[2017-11-19 08:11] LABS: ABSOLUTE BASOPHIL COUNT 0 /CUMM (0.0-0.2); ABSOLUTE EOSINOPHIL COUNT 0 /CUMM (0.0-0.7); ABSOLUTE GRANULOCYTE CT 13.4 /CUMM (1.4-6.5); ABSOLUTE LYMPH COUNT 1.7 /CUMM (1.2-3.4); ABSOLUTE MONOCYTE COUNT 0.4 /CUMM (0.10-0.60); BASOPHIL % 0.1 % (0.0-2.0); EOSINOPHIL % 0 % (0-5); HEMATOCRIT 39.7 % (37-47); MEAN CORPUSCULAR HGB 27.9 PG (27.0-31.0); MEAN CORPUSCULAR HGB CONC 33.3 G/DL (33.0-37.0); MEAN CORPUSCULAR VOLUME 83.6 FL (81.0-99.0); MEAN PLATELET VOLUME 8.4 FL (7.4-10.4); PLATELET COUNT 288 /CUMM (130-400); RBC DISTRIBUTION WIDTH 14.2 % (11.5-14.5); RED BLOOD CELL CT 4.75 /CUMM (4.20-5.40); WHITE BLOOD CELL COUNT 15.6 /CUMM (4.8-10.8)
--- NOTE | 2017-11-19 09:13 | Cons- Pulmonary ---
General Information and HPI Consulting Request Date of Consult: 11/19/17 Requested By: Hiram Reason for Consult: Acute exacerbation of asthma History of Present Illness: Patient has history of sleep apnea here with nasal CPAP long-standing asthma with frequent emergency room visits admitted for acute asthma. Patient can sit 10 days ago was seen in the emergency room and wish to go home. She failed to improve and returns yesterday with desaturation persistent cough wheezing shortness of breath chest tightness. X-ray was unrevealing Allergies/Medications Allergies: Coded Allergies: adhesive tape (Mild, HIVES 10/23/15) methyldopa (Mild, tongue swelling 10/23/15) amitriptyline (UNKNOWN 11/27/15) simvastatin (Mild, joint pain 11/27/15) escitalopram (From [employer]) ("Creepy crawlies inside me" 11/27/15) Home Med List: Albuterol Sulfate (Proair Hfa) 90 MCG HFA.AER.AD 2 PUF INH Q4-6 PRN PRN ASTHMA (Reported) Albuterol Sulfate 2.5 MG/3 ML (0.083 %) VIAL.NEB 1 Vial INH/ZEENAT Q4P PRN WHEEZE Amoxicillin/Potassium Clav (Augmentin 875-125 Tablet) 875 MG-125 MG TABLET 1 TAB PO BID bronchitis Atorvastatin Calcium 10 MG TABLET 1 TAB PO DAILY CHOLESTEROL (Reported) Butalb/Acetaminophen/Caffeine (Rjmrds-Awcrzrxm-Mpcm 50-300-40) 50 MG-300 MG-40 MG CAPSULE 1 TAB PO Q4H PRN MIGRAINES (Reported) Fluticasone/Salmeterol (Advair 250-50 Diskus) 250 MCG-50 MCG/DOSE BLST.W.DEV 1 PUF INH BID ASTHMA (Reported) Loratadine (Claritin) 10 MG TABLET 1 TAB PO DAILY ALLERGIES/ASTHMA (Reported) Lorazepam 0.5 MG TABLET 0.5 TAB PO PRN ANXIETY (Reported) Meloxicam 15 MG TABLET 1 TAB PO DAILY PAIN (Reported) Methylprednisolone. (Medrol) 4 MG TAB.DS.PK 1 DP PO AD inflammation/wheezing 6 on day 1 then reduce by one tablet daily until gone Montelukast Sodium 10 MG TABLET 1 TAB PO AT BEDTIME Asthma (Reported) Omeprazole 20 MG CAPSULE.DR 1 CAP PO BID GI (Reported) Sertraline HCl 50 MG TABLET 1 TAB PO DAILY MENTAL HEALTH (Reported) Tiotropium [place] (Spiriva) 18 MCG CAP.W.DEV 1 PUF INH DAILY LUNG HEALTH Review of Systems Review of Systems Constitutional: Denies: chills, fever. Cardiovascular: Denies: chest pain, edema. Respiratory: Reports: cough, short of breath, wheezing. Denies: hemoptysis, sputum production. GI: Denies: abdominal pain, diarrhea, melena. 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 MOTHER (Breast cancer). SISTER (Breast cancer). Psychosocial History Where Do You Live? Home Who Do You Live With? spouse Services at Home: None Primary Language: [place] Smoking Status: Former Smoker Functional Ability ADLs Independent: dressing, eating, toileting, bathing. Ambulation: independent IADLs Independent: shopping, housework, finances, food prep, telephone, transportation , medication admin. Exam & Diagnostic Data Last 24 Hrs of Vital Signs/I&O Vital Signs Date Time Temp Pulse Resp B/P B/P Pulse O2 O2 Flow FiO2 Mean Ox Delivery Rate 11/19 0833 Nasal 1.0L Cannula 11/19 0600 97.6 90 18 140/90 95 Nasal Cannula 11/19 0143 Nasal 2.0L Cannula 11/19 0121 98.0 83 20 154/86 97 Nasal 2.0L Cannula 11/19 0003 98.4 80 20 145/69 98 Nasal 2.0L Cannula 11/18 2217 98.5 90 20 160/70 97 Room Air 11/18 2034 96 Nasal 2.0L Cannula 11/18 1838 97.9 92 18 190/81 95 Room Air 11/18 1619 98.3 98 18 166/96 99 Nasal 2.0L Cannula 11/18 1406 96 Nasal 2.0L Cannula 11/18 1405 97.8 86 20 137/77 96 Nasal 2.0L Cannula 11/18 1311 97 Room Air 11/18 1251 97.6 84 18 155/84 97 Room Air Intake & Output 11/19 1600 11/19 0800 11/19 0000 Intake Total 360 Output Total Balance 360 Intake, Oral 360 Patient 271 lb Weight Weight Bed scale Measurement Method Oxygen saturation 1 L 95% HEENT exam shows no stridor adenopathy exam for chest shows diminished breath sounds are no wheezes heard cardiac exam shows regular S1 and S2 abdomen is soft nontender there's no significant lower extremity edema Last 48 Hrs of Labs/Ankit: Laboratory Tests 11/19/17 0618: Anion Gap 12, Estimated GFR > 60, BUN/Creatinine Ratio 40.0 H, CBC w Diff Pending, WBC Pending, RBC Pending, Hgb Pending, Hct Pending, MCV Pending, MCH Pending, MCHC Pending, RDW Pending, Plt Count Pending, MPV Pending, Gran % Pending, Lymphocytes % Pending, Monocytes % Pending, Eosinophils % Pending, Basophils % Pending, Absolute Granulocytes Pending, Absolute Lymphocytes Pending , Absolute Monocytes Pending, Absolute Eosinophils Pending, Absolute Basophils Pending 11/18/17 2219: Anion Gap 13, Estimated GFR > 60, BUN/Creatinine Ratio 40.0 H, Glucose 220 H, Calcium 9.6, Phosphorus 5.2 H, Magnesium 2.3, Total Bilirubin 0.7, AST 19, ALT 30, Alkaline Phosphatase 98, Troponin I < 0.01, Total Protein 6.9, Albumin 4.3, Globulin 2.6, Albumin/Globulin Ratio 1.7, CBC w Diff NO MAN DIFF REQ, RBC 4.93, MCV 83.6, MCH 27.4, MCHC 32.8 L, RDW 14.3, MPV 8.2, Gran % 88.0 H, Lymphocytes % 9.9 L, Monocytes % 1.9, Eosinophils % 0, Basophils % 0.2, Absolute Granulocytes 11.5 H, Absolute Lymphocytes 1.3, Absolute Monocytes 0.2, Absolute Eosinophils 0, Absolute Basophils 0 Microbiology 11/18 0023 NASOPHARYN: Influenza Virus A & B Rapid Smear - COMP Assessment/Plan Impression/Plan: 57-year-old woman with history of sleep apnea asthma admitted with exacerbation and hypoxic respiratory failure. She is clinically improving but has been symptomatic for 10 days likely will have a more prolonged course of recovery. Recommendations: Continue IV steroids. Review antibiotic regimen and consider discontinuing Keflex. Assess room air oxygen saturation. Obtain sputum C&S. Continue nocturnal CPAP. Continue baseline bronchodilator medications. Consult Acknowledgment - Thank you for your consult request.
[2017-11-19 09:36] LABS: GRANULOCYTE % 86.1 % (42.2-75.2)
--- NOTE | 2017-11-19 11:56 | PN- Att Addend ---
Attending Addendum Attending Brief Note 57-year-old white female admitted with an exacerbation of her asthma and she also has morbid obesity and infection in one of the fingers for what the resident start her on antibiotics. Today her breathing is better but she is complaining of a headache Her vital signs are stable has no fever breath her lung auscultation is a little improved appreciate pulmonary's input and recommendations. Will continue present treatment patient using her device for her sleep apnea. 24 TOTALS 11/19 0000 11/18 0000 Intake Total 0 Output Total Balance 0 Intake, Oral 0 Patient 270 lb Weight Weight Reported by Patient Measurement Method Current Medications Sig/Joni Start time Last Medication Dose Route Stop Time Status Admin Acetaminophen 1,000 MG Q8P PRN 11/19 0730 AC 11/19 PO 0910 Acetaminophen 650 MG .STK-MED ONE 11/19 0133 DC PO 11/19 0134 Acetaminophen 650 MG Q6P PRN 11/18 231 DC 11/19 PO 0133 Acetaminophen 0 .STK-MED ONE 11/18 1855 DC IV Acetaminophen 1,000 MG ONCE ONE 11/18 1845 DC 11/18 N/A 1 UNIT IV 11/18 1859 1851 Albuterol Sulfate 3 ML EVERY 4 HRS/AWAKE 11/19 0845 AC 11/19 INH 0840 Albuterol Sulfate 2 PUF Q4-6 PRN PRN 11/18 2314 AC INH Albuterol Sulfate 3 ML ONCE ONE 11/18 1845 DC 11/18 INH 11/18 1846 2011 Albuterol Sulfate 3 ML ONCE ONE 11/18 1515 DC 11/18 INH 11/18 1516 1514 Albuterol Sulfate 3 ML ONCE ONE 11/18 1330 DC 11/18 INH 11/18 1331 1318 Albuterol Sulfate 3 ML ONCE ONE 11/18 1330 DC 11/18 INH 11/18 1331 1327 Atorvastatin Calcium 10 MG 1700 11/19 1700 AC PO Azithromycin 500 MG DAILY 11/19 899 AC 11/19 Sodium Chloride 250 ML IV 0908 Azithromycin 500 MG DAILY 11/18 2314 CAN Sodium Chloride 250 ML IV Budesonide/ 2 PUF BID 11/19 899 AC 11/19 Formoterol Fumarate INH 0909 Cephalexin 500 MG Q6 11/19 0736 AC PO Enoxaparin Sodium 40 MG DAILY 11/19 899 AC SC Guaifenesin 600 MG Q12 11/18 2315 AC 11/19 PO 0909 Ipratropium [place] 2.5 ML ONCE ONE 11/18 1330 DC 11/18 INH 11/18 1331 1318 Ipratropium [place] 2.5 ML ONCE ONE 11/18 1330 DC 11/18 INH 11/18 1331 1327 Methylprednisolone 40 MG Q6 11/18 2359 AC 11/19 IV 0606 Methylprednisolone 0 .STK-MED ONE 11/18 1340 DC .ROUTE Methylprednisolone 125 MG ONCE ONE 11/18 1330 DC 11/18 IV 11/18 1331 1337 Montelukast Sodium 10 MG AT BEDTIME 11/19 2100 AC PO Omeprazole 20 MG BID 11/19 0900 AC 11/19 PO 0941 Oxycodone/ 1 TAB Q6P PRN 11/18 2315 DC Acetaminophen PO Sertraline HCl 50 MG DAILY 11/19 0900 AC 11/19 PO 0909 Tiotropium [place] 1 PUF DAILY 11/19 0900 AC 11/19 INH 0909 Laboratory Tests 11/19/17 0618: Anion Gap 12, Estimated GFR > 60, BUN/Creatinine Ratio 40.0 H, CBC w Diff NO MAN DIFF REQ, RBC 4.75, MCV 83.6, MCH 27.9, MCHC 33.3, RDW 14.2, MPV 8.4, Gran % 86.1 H, Lymphocytes % 11.2 L, Monocytes % 2.6, Eosinophils % 0, Basophils % 0.1, Absolute Granulocytes 13.4 H, Absolute Lymphocytes 1.7, Absolute Monocytes 0.4, Absolute Eosinophils 0, Absolute Basophils 0 11/18/172218: Anion Gap 13, Estimated GFR > 60, BUN/Creatinine Ratio 40.0 H, Glucose 220 H, Calcium 9.6, Phosphorus 5.2 H, Magnesium 2.3, Total Bilirubin 0.7, AST 19, ALT 30, Alkaline Phosphatase 98, Troponin I < 0.01, Total Protein 6.9, Albumin 4.3, Globulin 2.6, Albumin/Globulin Ratio 1.7, CBC w Diff NO MAN DIFF REQ, RBC 4.93, MCV 83.6, MCH 27.4, MCHC 32.8 L, RDW 14.3, MPV 8.2, Gran % 88.0 H, Lymphocytes % 9.9 L, Monocytes % 1.9, Eosinophils % 0, Basophils % 0.2, Absolute Granulocytes 11.5 H, Absolute Lymphocytes 1.3, Absolute Monocytes 0.2, Absolute Eosinophils 0, Absolute Basophils 0 Microbiology 11/18 0023 NASOPHARYN: Influenza Virus A & B Rapid Smear - COMP Microbiology Date/Time Procedure - Status Source Growth 11/18 2310 Respiratory Culture - COLB LOWER RESP 11/18 2310 Gram Stain - COLB LOWER RESP Vital Signs Date Time Temp Pulse Resp B/P B/P Pulse O2 O2 Flow FiO2 Mean Ox Delivery Rate 11/19 0833 Nasal 1.0L Cannula 11/19 0600 97.6 90 18 140/90 95 Nasal Cannula 11/19 0143 Nasal 2.0L Cannula 11/19 0121 98.0 83 20 154/86 97 Nasal 2.0L Cannula 11/19 0003 98.4 80 20 145/69 98 Nasal 2.0L Cannula 11/18 2217 98.5 90 20 160/70 97 Room Air 11/18 2034 96 Nasal 2.0L Cannula 11/18 1838 97.9 92 18 190/81 95 Room Air 11/18 1619 98.3 98 18 166/96 99 Nasal 2.0L Cannula 11/18 1406 96 Nasal 2.0L Cannula 11/18 1405 97.8 86 20 137/77 96 Nasal 2.0L Cannula 11/18 1311 97 Room Air 11/18 1251 97.6 84 18 155/84 97 Room Air
[2017-11-19 14:23] VITALS: BP 142/90
[2017-11-19 22:10] VITALS: BP 130/70
[2017-11-20 06:14] VITALS: BP 157/68
--- NOTE | 2017-11-20 07:10 | PN- Housestaff ---
See Addendum Subjective Follow-up For: Acute asthma exacerbation, cellulitis Subjective: Patient became acutely dyspneic around 3 in the morning. She received an albuterol treatment and felt better. Otherwise no other events. She feels like her breathing is improving and she is now off of oxygen. She does feel like she still having some wheezing now and would like to stay another day. She also feels like her fingers improving. She did have a headache yesterday from her migraines relieved by Fioricet. She has no other complaints. Review of Systems Constitutional: Reports: see HPI. EENTM: Reports: no symptoms. Cardiovascular: Reports: no symptoms. Respiratory: Reports: see HPI. Gastrointestinal: Reports: no symptoms. Genitourinary: Reports: no symptoms. Musculoskeletal: Reports: no symptoms. Skin: Reports: see HPI. Neurological/Psychological: Reports: no symptoms. Hematologic/Endocrine: Reports: no symptoms. Immunologic/Allergic: Reports: no symptoms. Objective Last 24 Hrs of Vital Signs/I&O Vital Signs Date Time Temp Pulse Resp B/P B/P Pulse O2 O2 Flow FiO2 Mean Ox Delivery Rate 11/20 0614 98.1 72 20 157/68 95 / 0304 97 Room Air Room Air 11/20 0000 CPAP 11/19 2210 98.0 85 20 130/70 96 11/19 1628 96 Nasal 1.0L Cannula 11/19 1600 Nasal 1.0L Cannula 11/19 1423 97.7 80 20 142/90 94 Room Air 11/19 0833 Nasal 1.0L Cannula 11/19 0800 Nasal 2.0L Cannula Intake & Output 11/20 0800 11/20 0000 11/19 1600 Intake Total 220 550 600 Output Total Balance 220 550 600 Intake, Oral 220 550 600 Physical Exam General Appearance: Alert, Oriented X3, Cooperative, No Acute Distress Cardiovascular: Regular Rate, Normal S1, Normal S2 Lungs: exp wheezing with forced expiration Abdomen: Normal Bowel Sounds, Soft, No Tenderness Extremities: No Edema, Normal Pulses, No Tenderness/Swelling, left middle finger with improving erythema, no pus Current Medications: Current Medications Sig/Joni Start time Last Medication Dose Route Stop Time Status Admin Acetaminophen 650 MG Q8P PRN 11/19 1530 AC 11/20 PO 0607 Acetaminophen 1,000 MG Q8P PRN 11/19 0730 DC 05/03 PO 0910 Acetaminophen 650 MG Q6P PRN 11/18 2315 DC 11/19 PO 0133 Acetaminophen/ 1 TAB Q6-PRN PRN 11/19 1415 AC 11/19 Butalbital/Caffeine PO 1427 Albuterol Sulfate 3 ML EVERY 4 HRS/AWAKE 11/19 0845 AC 11/20 INH 0301 Albuterol Sulfate 2 PUF Q4-6 PRN PRN 11/18 2315 AC INH Atorvastatin Calcium 10 MG 1700 11/19 1700 AC 11/19 PO 1802 Azithromycin 250 MG DAILY 11/20 0900 CAN PO Azithromycin 500 MG DAILY 11/19 0900 DC 11/19 Sodium Chloride 250 ML IV 0908 Budesonide/ 2 PUF BID 11/19 0900 AC 11/19 Formoterol Fumarate INH 2104 Cephalexin 500 MG Q6 11/19 0736 AC 11/20 PO 0601 Enoxaparin Sodium 40 MG DAILY 11/19 0900 AC SC Guaifenesin 600 MG Q12 11/18 2315 AC 11/19 PO 2103 Methylprednisolone 40 MG Q12 11/20 2100 UNVr IV Methylprednisolone 40 MG Q8 11/19 2200 DC 11/20 IV 0601 Methylprednisolone 40 MG Q6 11/18 2359 DC 11/19 IV 1245 Montelukast Sodium 10 MG AT BEDTIME 11/19 2100 AC 11/19 PO 2103 Omeprazole 20 MG BID 11/19 09 AC 11/19 PO 2103 Oxycodone/ 1 TAB Q6P PRN 11/18 2315 DC Acetaminophen PO Patient Medication 1 ED ONE ONE 11/19 1200 DC Teaching ED 11/19 1201 Sertraline HCl 50 MG DAILY 11/19 09 AC 11/19 PO 0909 Tiotropium [place] 1 PUF DAILY 11/19 0900 AC 11/19 INH 0909 Assessment/Plan Assessment: Ms. Pierre is a 57-year-old female with past medical history of long-standing asthma, bronchitis, multiple ED visits and admissions for asthma exacerbations, most recently seen in the ED on November 16, GERD, anxiety who presented with shortness of breath Problem list: 1. Acute asthma exacerbation 2. Acute hypoxemic respiratory failure 3. Morbid obesity 4. Left finger cellulitis 5. Migraine headaches #Acute asthma exacerbation: Patient presented with shortness of breath. Pulmonology has been consulted and she is on IV steroids. Her respiratory status is improving but still not at baseline. -Methylprednisone 40 mg twice daily, tapering -Montelukast -tiotropium -Budesonide/formoterol -TRC nebs -Appreciate pulmonology recommendations -Guaifenesin #Left finger cellulitis: Patient reports history of left finger erythema with pus. On exam it looked erythematous yesterday but is improving today. -Continue cephalexin #Migraine headaches: Patient has history of migraines and is on Fioricet at home. -Acetaminophen and Fioricet for headaches #Chronic medical problems: -Continue other home medications -Consider outpatient referral to bariatric surgery DVT prophylaxis with enoxaparin Heart healthy diet Full code Plan: Admit to general medicine floor Continue IV Solu-Medrol 40mg q8h TRC/DuoNeb treatments Continue spiriva, advair, proair Continue home medications Mucinex for congestion Pulmonary consult in AM with Dr. 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 Asthma exacerbation 2. Migraine Pain Ratin Pain Location: no Pain Goal: Remain pain free Pain Plan: see a/p Tomorrow's Labs & Rationales: no
--- NOTE | 2017-11-20 08:16 | PN- Pulmonary ---
Subjective HPI/Critical Care Issues: Patient is comfortable on room air but continues to have cough and shortness of breath Objective Current Medications: Current Medications Sig/Joni Start time Last Medication Dose Route Stop Time Status Admin Acetaminophen 650 MG Q8P PRN 11/19 1530 AC 11/20 PO 0607 Acetaminophen 1,000 MG Q8P PRN 11/19 0730 DC 11/19 PO 0910 Acetaminophen/ 1 TAB Q6-PRN PRN 11/19 1415 AC 11/19 Butalbital/Caffeine PO 1427 Albuterol Sulfate 3 ML EVERY 4 HRS/AWAKE 11/19 0845 AC 11/20 INH 0801 Albuterol Sulfate 2 PUF Q4-6 PRN PRN 11/18 2315 AC INH Atorvastatin Calcium 10 MG 1700 11/19 1700 AC 11/19 PO 1802 Azithromycin 250 MG DAILY 11/20 0900 CAN PO Azithromycin 500 MG DAILY 11/19 0900 DC 11/19 Sodium Chloride 250 ML IV 0908 Budesonide/ 2 PUF BID 11/19 09 AC 11/19 Formoterol Fumarate INH 210 Cephalexin 500 MG Q6 11/19 0736 AC 11/20 PO 0601 Enoxaparin Sodium 40 MG DAILY 11/19 0900 AC SC Guaifenesin 600 MG Q12 11/18 2315 AC 11/19 PO 2103 Methylprednisolone 40 MG Q12 11/20 2100 AC IV Methylprednisolone 40 MG Q8 11/19 2200 DC 11/20 IV 0601 Methylprednisolone 40 MG Q6 11/18 2359 DC 11/19 IV 1245 Montelukast Sodium 10 MG AT BEDTIME 11/19 2100 AC 11/19 PO 2103 Omeprazole 20 MG BID 11/19 09 AC 11/19 PO 2103 Patient Medication 1 ED ONE ONE 11/19 1200 DC Teaching ED 11/19 1201 Sertraline HCl 50 MG DAILY 11/19 09 AC 11/19 PO 0909 Tiotropium [place] 1 PUF DAILY 11/19 09 AC 11/19 INH 0909 Vital Signs & I&O Last 24 Hrs of Vitals and I&O: Vital Signs Date Time Temp Pulse Resp B/P B/P Pulse O2 O2 Flow FiO2 Mean Ox Delivery Rate 11/20 0802 98 Room Air Room Air 11/20 0614 98.1 72 20 157/68 95 11/20 0304 97 Room Air Room Air 05/04 0000 CPAP 11/19 2210 98.0 85 20 130/70 96 11/19 1628 96 Nasal 1.0L Cannula 11/19 1600 Nasal 1.0L Cannula 11/19 1423 97.7 80 20 142/90 94 Room Air 11/19 0833 Nasal 1.0L Cannula Intake & Output 11/20 1600 11/20 0800 11/20 0000 Intake Total 220 550 Output Total Balance 220 550 Intake, Oral 220 550 Oxygen saturation 98% exam for chest shows clear lung ye are no wheezes cardiac exam shows regular S1 and S2 without murmurs Impression/Plan Impression/Plan Impression/Plan: 57-year-old patient with exacerbation of COPD clinically improved Recommendations: DC IV Solu-Medrol begin oral prednisone with slow taper. Continue nocturnal CPAP. Assess oxygen saturation with ambulation. Anticipate discharge hopefully tomorrow
--- NOTE | 2017-11-20 10:26 | PN- Att Addend ---
Attending Addendum Attending Brief Note Patient feeling better, the headache went away after Fioricet her breathing is improved. Starting to ambulate and would take a shower vital signs stable no fever better air at radiation will continue IV steroids today is stable switched to by mouth tomorrow will increase ambulation Intake & Output 11/20 1600 11/20 0400 11/19 1600 11/19 0400 11/18 1600 11/18 0400 Intake Total 220 550 960 0 Output Total Balance 220 550 960 0 Intake, Oral 220 550 960 0 Patient 271 lb 270 lb Weight Weight Bed scale Reported by Patient Measurement Method Current Medications Sig/Joni Start time Last Medication Dose Route Stop Time Status Admin Acetaminophen 650 MG Q8P PRN 11/19 1530 AC 11/20 PO 0607 Acetaminophen 1,000 MG Q8P PRN 11/19 0730 DC 11/19 PO 0910 Acetaminophen/ 1 TAB Q6-PRN PRN 11/19 1415 AC 11/19 Butalbital/Caffeine PO 1427 Albuterol Sulfate 3 ML EVERY 4 HRS/AWAKE 11/19 0845 AC 11/20 INH 0801 Albuterol Sulfate 2 PUF Q4-6 PRN PRN 11/18 2315 AC INH Atorvastatin Calcium 10 MG 1700 11/19 1700 AC 11/19 PO 1802 Azithromycin 250 MG DAILY 11/20 0900 CAN PO Azithromycin 500 MG DAILY 11/19 0900 DC 11/19 Sodium Chloride 250 ML IV 0908 Budesonide/ 2 PUF BID 11/19 09 AC 11/20 Formoterol Fumarate INH 0858 Cephalexin 500 MG Q6 11/19 0736 AC 11/20 PO 11/22 2300 0601 Enoxaparin Sodium 40 MG DAILY 11/19 0900 AC SC Guaifenesin 600 MG Q12 11/18 2315 AC 11/20 PO 0856 Methylprednisolone 40 MG Q12 11/20 2100 AC IV Methylprednisolone 40 MG Q8 11/19 2200 DC 11/20 IV 0601 Methylprednisolone 40 MG Q6 11/18 2359 DC 11/19 IV 1245 Montelukast Sodium 10 MG AT BEDTIME 11/19 2100 AC 11/19 PO 2103 Omeprazole 20 MG BID 11/19 0900 AC 11/20 PO 0856 Patient Medication 1 ED ONE ONE 11/19 1200 DC Teaching ED 11/19 1201 Sertraline HCl 50 MG DAILY 11/19 09 AC 11/20 PO 0856 Tiotropium [place] 1 PUF DAILY 11/19 09 AC 11/20 INH 0856 Laboratory Tests 11/19/17 0618: Anion Gap 12, Estimated GFR > 60, BUN/Creatinine Ratio 40.0 H, CBC w Diff NO MAN DIFF REQ, RBC 4.75, MCV 83.6, MCH 27.9, MCHC 33.3, RDW 14.2, MPV 8.4, Gran % 86.1 H, Lymphocytes % 11.2 L, Monocytes % 2.6, Eosinophils % 0, Basophils % 0.1, Absolute Granulocytes 13.4 H, Absolute Lymphocytes 1.7, Absolute Monocytes 0.4, Absolute Eosinophils 0, Absolute Basophils 0 11/18/172218: Anion Gap 13, Estimated GFR > 60, BUN/Creatinine Ratio 40.0 H, Glucose 220 H, Calcium 9.6, Phosphorus 5.2 H, Magnesium 2.3, Total Bilirubin 0.7, AST 19, ALT 30, Alkaline Phosphatase 98, Troponin I < 0.01, Total Protein 6.9, Albumin 4.3, Globulin 2.6, Albumin/Globulin Ratio 1.7, CBC w Diff NO MAN DIFF REQ, RBC 4.93, MCV 83.6, MCH 27.4, MCHC 32.8 L, RDW 14.3, MPV 8.2, Gran % 88.0 H, Lymphocytes % 9.9 L, Monocytes % 1.9, Eosinophils % 0, Basophils % 0.2, Absolute Granulocytes 11.5 H, Absolute Lymphocytes 1.3, Absolute Monocytes 0.2, Absolute Eosinophils 0, Absolute Basophils 0 Microbiology 11/18 2310 LOWER RESP: Respiratory Culture - CAN Cancelled: SPECIMEN NOT RECEIVED IN LABORATORY 11/18 2310 LOWER RESP: Gram Stain - CAN Cancelled: SPECIMEN NOT RECEIVED IN LABORATORY 11/18 22 NASOPHARYN: Influenza Virus A & B Rapid Smear - COMP Microbiology 11/18 2310 LOWER RESP: Respiratory Culture - CAN Cancelled: SPECIMEN NOT RECEIVED IN LABORATORY 11/18 2310 LOWER RESP: Gram Stain - CAN Cancelled: SPECIMEN NOT RECEIVED IN LABORATORY 11/18 22 NASOPHARYN: Influenza Virus A & B Rapid Smear - COMP Vital Signs Date Time Temp Pulse Resp B/P B/P Pulse O2 O2 Flow FiO2 Mean Ox Delivery Rate 11/20 08 98 Room Air Room Air 05/04 0614 98.1 72 20 157/68 95 11/20 0304 97 Room Air Room Air 11/20 0000 CPAP 11/19 2210 98.0 85 20 130/70 96 11/19 1628 96 Nasal 1.0L Cannula 11/19 1600 Nasal 1.0L Cannula 11/19 1423 97.7 80 20 142/90 94 Room Air To leukocytosis maybe related to the steroids.
[2017-11-20] MEDS ORDERED: CEPHALEXIN500 M3 PO (11:06)
[2017-11-20] MEDS ORDERED: PREDNISONE10 M2 PO (11:06)
--- NOTE | 2017-11-20 11:07 | Patient Discharge Instructions ---
Discharge Instructions General Discharge Information You were seen/treated for: Asthma exacerbation and cellulitis Watch for these problems: Fever, chest pain, shortness of breath Special Instructions: Please take all medications as directed. Please follow-up with pulmonology and primary care. Diet Continue normal diet: Yes Activity Full Activity/No Limits: Yes Acute Coronary Syndrome Inclusion Criteria At DC or during hospital stay patient has or had the following: ACS DIAGNOSIS No Discharge Core Measures Meds if any: Prescribed or Continued at Discharge Meds if any: NOT Prescribed or Continued at Discharge Congestive Heart Failure Inclusion Criteria At DC or during hospital stay patient has or had the following: CHF DIAGNOSIS No Discharge Core Measures Meds if any: Prescribed or Continued at Discharge Meds if any: NOT Prescribed or Continued at Discharge Cerebrovascular accident Inclusion Criteria At DC or during hospital stay patient has or had the following: CVA/TIA Diagnosis No Discharge Core Measures Meds if any: Prescribed or Continued at Discharge Meds if any: NOT Prescribed or Continued at Discharge Venous thromboembolism Inclusion Criteria VTE Diagnosis No VTE Type NONE VTE Confirmed by (Test) NONE Discharge Core Measures - Per Current guidelines, there needs to be overlap - treatment for the first 5 days of Warfarin therapy. - If discharged on Warfarin prior to 5 days of - overlap therapy, the patient will need to be - assessed for post discharge needs including - *Post discharge parental anticoagulation - *Warfarin and/or parental anticoagulation education - *Follow up date to check INR post discharge At least 5 days overlap therapy as Inpatient No Meds if any: Prescribed or Continued at Discharge Note: Overlap Therapy is Warfarin and Anticoagulant Meds if any: NOT Prescribed or Continued at Discharge
[2017-11-20 13:44] VITALS: BP 130/70
[2017-11-20 19:29] VITALS: BP 124/60
[2017-11-20 21:57] VITALS: BP 144/78
[2017-11-21 06:00] VITALS: BP 122/70
--- NOTE | 2017-11-21 09:16 | PN- Pulmonary ---
Subjective HPI/Critical Care Issues: Patient feels improved ambulating without oxygen Objective Current Medications: Current Medications Sig/Joni Start time Last Medication Dose Route Stop Time Status Admin Acetaminophen 650 MG Q8P PRN 11/19 1530 AC 11/20 PO 0607 Acetaminophen/ 1 TAB Q6-PRN PRN 11/19 1415 11/19 Butalbital/Caffeine PO 1427 Albuterol Sulfate 3 ML EVERY 4 HRS/AWAKE 11/19 0845 AC 11/21 INH 0726 Albuterol Sulfate 2 PUF Q4-6 PRN PRN 11/18 2315 AC INH Atorvastatin Calcium 10 MG 1700 11/19 1700 AC 11/20 PO 1647 Budesonide/ 2 PUF BID 11/19 09 11/21 Formoterol Fumarate INH 0833 Cephalexin 500 MG Q6 11/19 0736 11/21 PO 11/22 2300 0532 Enoxaparin Sodium 40 MG DAILY 11/19 899 SC Guaifenesin 600 MG Q12 11/18 2315 11/21 PO 0834 Methylprednisolone 40 MG Q12 11/20 2100 CAN IV Methylprednisolone 40 MG ONCE ONE 11/20 1600 DC 11/20 IV 11/20 1601 1647 Montelukast Sodium 10 MG AT BEDTIME 11/19 2100 AC 11/20 PO 2006 Omeprazole 20 MG BID 11/19 09 11/21 PO 0833 Patient Medication 1 ED ONE ONE 11/20 1730 [facility] Teaching ED 11/20 1731 Prednisone 10 MG DAILY 11/27 899 PO 11/29 0859 Prednisone 20 MG DAILY 11/25 899 PO 11/27 0859 Prednisone 30 MG DAILY 11/23 899 AC PO 11/25 0859 Prednisone 40 MG DAILY 11/21 899 DC PO 11/29 0859 Prednisone 40 MG DAILY 11/21 899 AC 11/21 PO 11/23 0859 0834 Sertraline HCl 50 MG DAILY 11/19 899 11/21 PO 0833 Tiotropium [place] 1 PUF DAILY 11/19 899 11/21 INH 0833 Vital Signs & I&O Last 24 Hrs of Vitals and I&O: Vital Signs Date Time Temp Pulse Resp B/P B/P Pulse O2 O2 Flow FiO2 Mean Ox Delivery Rate 11/21 07 95 Room Air 11/21 06 98.4 60 18 122/70 94 Room Air 11/21 0000 CPAP 05/04 2157 98.0 69 18 144/78 93 Room Air 11/20 1929 97.8 88 124/60 94 Room Air 11/20 1653 Room Air 11/20 1344 97.9 91 20 130/70 97 Room Air Intake & Output 11/21 1600 11/21 0800 11/21 0000 Intake Total 120 120 Output Total 350 Balance -230 120 Intake, Oral 120 120 Output, Urine 350 MRI oxygen saturation 95% exam for chest shows clear lung ye are no wheezes cardiac exam shows regular S1 and S2 without murmurs Impression/Plan Impression/Plan Impression/Plan: 57-year-old woman admitted with exacerbation of asthma and acute hypoxic respiratory failure resolved Recommendations: Continue slow prednisone taper. Resume baseline bronchodilator regimen. Continue CPAP daily at bedtime. Office follow-up after discharge. Patient appears stable for discharge today from pulmonary standpoint
--- NOTE | 2017-11-21 10:32 | PN- Att Addend ---
Attending Addendum Attending Brief Note Doing well afebrile vss chest clear cough Cvs s1s2 abd soft no edema Intake & Output 11/21 1600 11/21 0800 11/21 0000 Intake Total 120 120 Output Total 350 Balance -230 120 Intake, Oral 120 120 Output, Urine 350 Current Medications Sig/Joni Start time Last Medication Dose Route Stop Time Status Admin Acetaminophen 650 MG Q8P PRN 11/19 1530 AC 11/20 PO 0607 Acetaminophen/ 1 TAB Q6-PRN PRN 11/19 1415 11/19 Butalbital/Caffeine PO 1427 Albuterol Sulfate 3 ML EVERY 4 HRS/AWAKE 11/19 0845 AC 11/21 INH 0726 Albuterol Sulfate 2 PUF Q4-6 PRN PRN 11/18 2315 AC INH Atorvastatin Calcium 10 MG 1700 11/19 1700 AC 11/20 PO 1647 Budesonide/ 2 PUF BID 11/19 0900 AC 11/21 Formoterol Fumarate INH 0833 Cephalexin 500 MG Q6 11/19 0736 AC 11/21 PO 11/22 2300 0532 Enoxaparin Sodium 40 MG DAILY 11/19 09 SC Guaifenesin 600 MG Q12 11/18 2315 AC 11/21 PO 0834 Methylprednisolone 40 MG Q12 11/20 2100 CAN IV Methylprednisolone 40 MG ONCE ONE 11/20 1600 DC 11/20 IV 11/20 1601 1647 Montelukast Sodium 10 MG AT BEDTIME 11/19 2100 AC 11/20 PO 2006 Omeprazole 20 MG BID 11/19 0900 AC 11/21 PO 0833 Patient Medication 1 ED ONE ONE 11/20 1730 DC Teaching ED 11/20 1731 Prednisone 10 MG DAILY 11/27 899 PO 11/29 0859 Prednisone 20 MG DAILY 11/25 899 PO 11/27 0859 Prednisone 30 MG DAILY 11/23 899 AC PO 11/25 0859 Prednisone 40 MG DAILY 11/21 899 MT PO 11/29 0859 Prednisone 40 MG DAILY 11/21 899 AC 11/21 PO 11/23 0859 0834 Sertraline HCl 50 MG DAILY 11/19 09 AC 11/21 PO 0833 Tiotropium [place] 1 PUF DAILY 11/19 09 11/21 INH 0833 Microbiology Date/Time Procedure - Status Source Growth 11/18 2310 Respiratory Culture - CAN LOWER RESP Cancelled: SPECIMEN NOT RECEIVED IN LABORATORY 11/18 231 Gram Stain - CAN LOWER RESP Cancelled: SPECIMEN NOT RECEIVED IN LABORATORY Vital Signs Date Time Temp Pulse Resp B/P B/P Pulse O2 O2 Flow FiO2 Mean Ox Delivery Rate 11/21 0800 Room Air 11/21 0728 95 Room Air 11/21 0600 98.4 60 18 122/70 94 Room Air 11/21 0000 CPAP 11/20 2157 98.0 69 18 144/78 93 Room Air 11/20 1929 97.8 88 124/60 94 Room Air 11/20 1653 Room Air 11/20 1344 97.9 91 20 130/70 97 Room Air 57-year-old woman admitted with exacerbation of asthma and acute hypoxic respiratory failure resolved JOANNE on cpap Morbid obesity Steroid dep asthma Gerd REC Ok to dc Dc on steroid taper 30 for 5 and 20 for 5 and 10 for 5 and 5 for five and 5 qod for five Advair 500 bid Spiriva one puff dialy Cpap loratidine/singulair/omeprazole 40 daily pt shoudl avoid all asa and nsaid which could precipitate her asthma needs out pt eval for [place] 5 antibody rx
[2017-11-21] MEDS ORDERED: CEPHALEXIN500 M3 PO (12:36)
[2017-11-21] MEDS ORDERED: PREDNISONE10 M2 PO (12:36)
--- NOTE | 2017-11-30 20:32 | Discharge Summary ---
Visit Information Visit Dates Admission Date: 11/18/17 Discharge Date: 11/21/17 Hospital Course Course Attending Physician: Nathanael Rodriguez MD Primary Care Physician: Nathanael Rodriguez MD Consulting Request: Consulting Specialty: Pulmonary Disease Consulting Physician: Dr Wesley Reason for Consult: acute asthma exacerbation hypoxemic respiratory failure Hospital Course: 57-year-old white female history of asthma and frequent exacerbations history of GERD or with obesity anxiety obstructive sleep apnea on CPAP. Came to the ER several days ago exacerbation did not improve much at all, she was so much worse that she returns to the ER respiratory distress and hypoxic respiratory failure and elevated white count in the ER she got IV steroids respiratory therapy and oxygen started to improve quickly needed to be admitted for IV steroids respiratory therapy was seen in consultation by pulmonary by Dr. Cano recommendations were given to improved and was able to be discharged doses of corticosteroids Complications: None Allergies: Coded Allergies: adhesive tape (Mild, HIVES 10/23/15) methyldopa (Mild, tongue swelling 10/23/15) amitriptyline (UNKNOWN 11/27/15) simvastatin (Mild, joint pain 11/27/15) escitalopram (From LEXAPRO) ("Creepy crawlies inside me" 11/27/15) Significant Procedures: EXAMINATION: XR CHEST CLINICAL INFORMATION: Wheezing. COMPARISON: 11/16/2017 TECHNIQUE: 2 views of the chest were obtained. FINDINGS: The lungs are well expanded. There is no focal consolidation, edema, or effusion. No pneumothorax. The cardiomediastinal silhouette is within normal limits. No acute osseous abnormality. Degenerative changes noted in the spine. IMPRESSION: No acute pulmonary findings. Pertinent Lab Results: 11/18/17 2219: Anion Gap 13, Estimated GFR > 60, BUN/Creatinine Ratio 40.0 H, Glucose 220 H, Calcium 9.6, Phosphorus 5.2 H, Magnesium 2.3, Total Bilirubin 0.7, AST 19, ALT 30, Alkaline Phosphatase 98, Total Protein 6.9, Albumin 4.3, Globulin 2.6, Albumin/Globulin Ratio 1.7, CBC w Diff NO MAN DIFF REQ, RBC 4.93, MCV 83.6, MCH 27.4, MCHC 32.8 L, RDW 14.3, MPV 8.2, Gran % 88.0 H, Lymphocytes % 9.9 L, Monocytes % 1.9, Eosinophils % 0, Basophils % 0.2, Absolute Granulocytes 11.5 H , Absolute Lymphocytes 1.3, Absolute Monocytes 0.2, Absolute Eosinophils 0, Absolute Basophils 0 Microbiology 11/18 2310 LOWER RESP: Respiratory Culture - ORD 11/18 2310 LOWER RESP: Gram Stain - ORD 11/19/17 0618: Anion Gap 12, Estimated GFR > 60, BUN/Creatinine Ratio 40.0 H, CBC w Diff NO MAN DIFF REQ, RBC 4.75, MCV 83.6, MCH 27.9, MCHC 33.3, RDW 14.2, MPV 8.4, Gran % 86.1 H, Lymphocytes % 11.2 L, Monocytes % 2.6, Eosinophils % 0, Basophils % 0.1, Absolute Granulocytes 13.4 H, Absolute Lymphocytes 1.7, Absolute Monocytes 0.4, Absolute Eosinophils 0, Absolute Basophils 0 Disposition Summary Disposition Principal Diagnosis: Acute asthma exacerbation Approximate respiratory failure Additional Diagnosis: GERD Morbid obesity Anxiety Obstructive sleep apnea Discharge Disposition: home or self care Discharge Instructions General Discharge Information Code Status: Full Code Patient's Diet: Healthy heart Patient's Activity: As tolerated Follow-Up Instructions/Appts: With Dr. Rodriguez and pulmonary Medications at Discharge Discharge Medications: Stop taking the following medications: Methylprednisolone. (Medrol) 4 MG TAB.DS.PK ORAL As Directed Qty = 1 Amoxicillin/Potassium Clav (Augmentin 875-125 Tablet) 875 MG-125 MG TABLET ORAL TWICE DAILY Qty = 20 Continue taking these medications: Omeprazole (Omeprazole) 20 MG CAPSULE.DR 1 Capsule ORAL TWICE DAILY Comments: Last Taken: 11/21/17 Time: 08:33 Montelukast Sodium (Montelukast Sodium) 10 MG TABLET 1 Tablet ORAL AT BEDTIME Comments: Last Taken: 11/20/17 Time: 20:06 Fluticasone/Salmeterol (Advair 250-50 Diskus) 250 MCG-50 MCG/DOSE BLST.W.DEV 1 Puff Inhale through mouth TWICE DAILY Comments: NOT GIVEN IN THE HOSPITAL Tiotropium [place] (Spiriva) 18 MCG CAP.W.DEV 1 Puff Inhale through mouth DAILY Days = 30 Comments: Last Taken: 11/21/17 Time: 08:33 Albuterol Sulfate (Proair Hfa) 90 MCG HFA.AER.AD 2 Puff Inhale through mouth EVERY 4-6 HOURS NEEDED as needed for ASTHMA Qty = 9 Comments: NOT GIVEN IN THE HOSPITAL Sertraline HCl (Sertraline HCl) 50 MG TABLET 1 Tablet ORAL DAILY Qty = 90 Comments: Last Taken: 11/21/17 Time: 08:33 Loratadine (Claritin) 10 MG TABLET 1 Tablet ORAL DAILY Comments: NOT GIVEN IN THE HOSPITAL Atorvastatin Calcium (Atorvastatin Calcium) 10 MG TABLET 1 Tablet ORAL DAILY Qty = 30 Comments: Last Taken: Time: 16:47 Lorazepam (Lorazepam) 0.5 MG TABLET 0.5 Tablet ORAL as needed for ANXIETY Qty = 15 Comments: NOT GIVEN IN THE HOSPITAL Butalb/Acetaminophen/Caffeine (Yftmrp-Tbvoqabo-Zowo 50-300-40) 50 MG-300 MG-40 MG CAPSULE 1 Tablet ORAL Q4H as needed for MIGRAINES Qty = 30 Comments: NOT GIVEN IN THE HOSPITAL Albuterol Sulfate (Albuterol Sulfate) 2.5 MG/3 ML (0.083 %) VIAL.NEB 1 Vial Inhale Solution EVERY 4 HOURS NEEDED as needed for WHEEZE Qty = 50 Comments: Last Taken: 11/21/17 Time: 07:26 Meloxicam (Meloxicam) 15 MG TABLET 1 Tablet ORAL DAILY Qty = 90 Comments: NOT GIVEN IN THE HOSPITAL Start taking the following new medications: Prednisone (Prednisone) 10 MG TABLET 1 Tablet ORAL DAILY Qty = 35 No Refills Instructions: Please take 30mg from 11/23/17-11/26/17, 20mg from 11/27/17-12/01/17, 10mg from 12/02/17-12/06/17, 5mg from 12/07/17-12/11/17, then stop. Comments: Last Taken: 11/21/17 Time: 08:34 Cephalexin (Cephalexin) 500 MG CAPSULE 500 Milligram ORAL EVERY SIX HOURS Qty = 8 No Refills Instructions: . Comments: Last Taken: 11/21/17 Time: 12:20 Copies To: Lupillo COTTER,Ever Godoy; Nathanael Rdoriguez MD Attending Review Statement Documenting Attending: Nathanael Rodriguez MD
== END 2017-11-21 13:35 | DRG 202 ==
LOC: ERH 12:46 → ERHI 19:48 → 2NA 19:48 → ENRESERV 23:36 → 2NA 11-19 01:10
PROVIDERS: Emergency Medicine; Internal Medicine Hematology & Oncology
DX: J45.42 Moderate persistent asthma with status asthmaticus (principal); J96.01 Acute respiratory failure with hypoxia; Z68.42 Body mass index [BMI] 45.0-49.9, adult; E66.01 Morbid (severe) obesity due to excess calories; E78.5 Hyperlipidemia, unspecified; K21.9 Gastro-esophageal reflux disease without esophagitis; D72.829 Elevated white blood cell count, unspecified; Z91.048 Other nonmedicinal substance allergy status; L03.012 Cellulitis of left finger; G43.909 Migraine, unspecified, not intractable, without status migrainosus; G47.33 Obstructive sleep apnea (adult) (pediatric); Z88.8 Allergy status to other drugs, medicaments and biological substances; Z90.49 Acquired absence of other specified parts of digestive tract; Z85.820 Personal history of malignant melanoma of skin; Z87.891 Personal history of nicotine dependence
CPT/HCPCS: 2NASP; ERO; 71046; 82436; 87070; 87804; 87804-59; 93005; 93010; 96374; 96375; 99291; J0131; J0456; J1650; J2920; J2930; J3490; J7040